=== PATIENT | male | born 1960 | race Caucasian/White ===

== ENCOUNTER → 2016-11-05 | Day surgery (SDC) | payer BC ==
[2016-11-02 13:06] VITALS: BMI 33.0
[~2016-11-05] VITALS: Ht 185.4 cm; Wt 113.6 kg
[~2016-11-05] MED LIST: ALUMSUS21 PO; FEXO1TAB49 PO; FINA5TAB4 PO; HYZ/10015 PO; LIDOCAINE HCL 2% 2 ML VIAL (20MG/ML) ONE; LPT40 PO; MIDAZOLAM HCL 1 MG/ML 2ML VIAL ONE; PROPOFOL IV EMULSION 10 MG/ML 20 ML VIAL IV ONE; SUCCINYLCHOLINE CHLORIDE 20 MG/ML 10 ML VIAL IV ONE; TERB250T51 PO; ZNT150 PO
[2016-11-05 13:05] VITALS: Ht 185.4 cm; Wt 113.6 kg
[2016-11-05 13:13] VITALS: TEMP 36.8
--- NOTE | 2016-11-05 13:41 | Endo History and Physical ---
History & Physical Date of Service: Nov 05, 2016. Chief Complaint: ABDOMINAL PAIN DIARRHEA REFLUX Referring Physician: DR LENY ACEVES History of Present Illness For EGD with Wyatt Past Medical History Male Genitourinary Prob., Reflux, Hypertension, Other Past Surgical History Hx Cardiac Surgery: No Hx Internal Defibrillator: No Hx Pacemaker: No Hx Abdominal Surgery: Yes (LAP) Hx of Implantable Prosthesis: No Hx Post-Op Nausea and Vomiting: No Hx Cancer Surgery: No Hx Thoracic Surgery: No Hx Orthopedic: Yes (LUMBAR FUSION, RT/LEFT KNEE ARTHROSCOPY) Hx Urinary Tract Surgery: No Family History Colon CA Social History Smoking Status: Never Smoker Hx Substance Use: No Hx Alcohol Use: No Allergies Coded Allergies: Grass (Unverified Allergy, Unknown, TREES,GRASS MOLDS-ITCHY EYES,STUFFY NOSE, 11/05/16) NO KNOWN DRUG ALLERGIES (Unverified Allergy, Unknown, NONE, 11/05/16) Current Medications Reported Home Medications Medications Dose Route/Sig Max Daily Dose Days Date Category Hyzaar 25MG/100MG (HCTZ/Losartan Potassium) Tab 1 Tab PO QAM 11/02/16 Reported Little Allergy (Fexofenadine Hcl) 180 Mg Tab 1 Tab PO QAM 14 11/02/16 Reported Gaviscon (Aluminum Hydroxide-Mag Carb) 1 Ruma Ruma 1 Dose PO PRN 10/27/15 Reported Proscar (Finasteride) 5 Mg Tab 5 Mg PO QAM 10/27/15 Reported Vital Signs Weight (Kilograms): 113.64 Height (Feet): 6 Height (Inches): 1 Date Time Temp Pulse Resp B/P Pulse Ox O2 Delivery O2 Flow Rate FiO2 11/05/16 13:13 36.8 75 20 137/86 97 Room Air Physical Exam General Appearance: WD/WN Respiratory/Chest: Respiratory effort: no dyspnea Cardiovascular: Heart Auscultation: RRR Abdomen: Inspection & Palpation: soft Assessment and Plan N and V, abd pain for EGD with Wyatt
--- NOTE | 2016-11-05 14:20 | Discharge Instructions ---
Endoscopy Patient Instructions Date / Procedure(s) Performed Nov 05, 2016. EGD, Other (Wyatt) Allergy Information Coded Allergies: Grass (Unverified Allergy, Unknown, TREES,GRASS MOLDS-ITCHY EYES,STUFFY NOSE, 11/05/16) NO KNOWN DRUG ALLERGIES (Unverified Allergy, Unknown, NONE, 11/05/16) Discharge Date / Findings Nov 05, 2016. Normal EGD, Wyatt placement Medication Instructions Restart Stopped Medication(s): No acid reducing meds No acid reducing meds for 48 hrs Provider Instructions Activity Restrictions - No exercising or heavy lifting for 24 hours. - Do not drink alcohol the day of the procedure. - Do not drive a car or operate machinery until the day after the procedure. - Do not make any important decisions or sign important papers in 24 hours after the procedure. Following Day: - Return to full activity which may include returning to work/school. Diet Start your diet with liquids and light foods (jello, soup, juice, toast). Then eat your usual diet if not nauseated. Treatment For Common After Affects For mild abdominal pain, bloating, or excessive gas: - Rest - Eat lightly - Lie on right side Follow-Up Information Follow-up with DR LENY ACEVES as scheduled Anesthesia Information What You Should Know You have had a procedure that required some medicine to reduce anxiety and discomfort. This treatment is called moderate sedation. After receiving the treatment, you may be sleepy, but you will be able to breathe on your own. The effects of the treatment may last for several hours. Follow these instructions along with Activity/Diet recommendations noted above: * Do NOT do anything where dizziness or clumsiness would be dangerous. * Rest quietly at home today, then you can be up and about tomorrow. * Have a responsible person stay with you the rest of today. * You may have had an I.V. today. If so, you may take the dressing off later today. Recommendations Call your doctor if: * Trouble breathing * Continuous vomiting for more than 24 hours * Temperature above 101 degrees * Severe abdominal pain or bloating * Pain not relieved by pain medicine ordered * There is increased drainage or redness from any incision * A large amount of rectal bleeding greater than 2-3 tablespoons. (If you had a polyp/s removed or have hemorrhoids, a small amount of blood - from the rectum is to be expected.) * You have any unanswered questions or concerns. IN THE EVENT OF A SERIOUS EMERGENCY, GO TO THE NEAREST EMERGENCY ROOM Your discharge instructions were prepared by provider Manny Vazquez. Patient Instructions Signature Page Eddie Neri Patient (or Guardian) Signature/Date: I have read and understand the instructions given to me by my caregivers. Caregiver/RN/Doctor Signature/Date: The above-named patient and/or guardian has received patient instructions on this date. + Original Patient Signature Page (only) stays with chart. Please make copy for patient.
--- NOTE | 2016-11-05 14:25 | GI REPORT ---
Procedure Date: 11/05/2016 1:59 PM Procedure: Upper GI endoscopy Indications: Epigastric abdominal pain, Nausea with vomiting Medicines: Midazolam 2 mg IV, Propofol total dose 350 mg IV, Lidocaine 40 mg IV Complications: No immediate complications. Estimated Blood Loss: Estimated blood loss: none. Procedure: Pre-Anesthesia Assessment: - Prior to the procedure, a History and Physical was performed, and patient medications, allergies and sensitivities were reviewed. The patient's tolerance of previous anesthesia was reviewed. - The risks and benefits of the procedure and the sedation options and risks were discussed with the patient. All questions were answered and informed consent was obtained. After obtaining informed consent, the endoscope was passed under direct vision. Throughout the procedure, the patient's blood pressure, pulse, and oxygen saturations were monitored continuously. The On-site loaner was introduced through the mouth, and advanced to the second part of duodenum. The upper GI endoscopy was accomplished without difficulty. The patient tolerated the procedure well. Findings: The examined esophagus was normal. The MCCLENDON capsule with delivery system was introduced through the mouth and advanced into the esophagus, such that the MCCLENDON pH capsule was positioned 34 cm from the incisors, which was 6 cm proximal to the EG junction. The MCCLENDON pH capsule was then deployed and attached to the esophageal mucosa. The delivery system was then withdrawn. Endoscopy was utilized for probe placement and diagnostic evaluation. The entire examined stomach was normal. The examined duodenum was normal. Impression: - Normal esophagus. - Normal stomach. - Normal examined duodenum. - The MCCLENDON pH capsule was deployed. - No specimens collected. Recommendation: - Discharge patient to home (ambulatory). - Continue present medications. - Return to primary care physician PRN. Manny Vazquez M.D. Manny Vazquez MD 11/05/2016 2:23:27 PM This report has been signed electronically. Note Initiated On: 11/05/2016 1:59 PM
--- NOTE | 2016-11-05 14:37 | Anesthesiology Progress Note ---
Anesthesia Post Op Note Date & Time Nov 05, 2016 at 14:36 Vital Signs Pain Intensity: 3 Vital Signs Past 12 Hours Date Time Temp Pulse Resp B/P Pulse Ox O2 Delivery O2 Flow Rate FiO2 11/05/16 13:13 36.8 75 20 137/86 97 Room Air Notes Mental Status: alert / awake / arousable Nausea / Vomiting: adequately controlled Pain: adequately controlled Airway Patency, RR, SpO2: stable & adequate BP & HR: stable & adequate Hydration State: stable & adequate Anesthetic Complications: no major complications apparent
[2016-11-05 14:45] VITALS: PULSE 76
[2016-11-05 15:00] VITALS: BP 123/76; O2SAT 98
--- NOTE | 2016-11-13 15:33 | OPERATIVE REPORT ---
DATE OF OPERATION: 11/13/2016 PROCEDURE PERFORMED: A 48-hour ambulatory pH monitoring with Wyatt. PROCEDURE: The patient had the Wyatt clip placed on November 05, the clip stayed in place for the entire 48 hours, making the study legitimate further time. The patient's overall DeMeester score for 48 hours was 6.3 which was well below the threshold for significant acid reflux. On day #1, histamine DeMeester score was 9.4, on the second day it was 3.0. He has had 2 episodes of reflux recorded on the event monitor during the 48-hour period. There were 52 episodes of reflux, none of which correlated with his symptoms indicating that this is highly unlikely that his symptoms are due to acid reflux disease. IMPRESSION: No significant acid reflux and poor correlation with symptoms with acid reflux. I attest to the content of the Intraoperative Record and any orders documented therein. Any exceptio ns are noted below.
== END | disposition home or self-care (01) ==
LOC: C.GI 12:51
PROVIDERS: ATTEND Internal Medicine Gastroenterology
DX: R10.13 Epigastric pain (principal); R11.2 Nausea with vomiting, unspecified; K21.9 Gastro-esophageal reflux disease without esophagitis; I10 Essential (primary) hypertension; Z98.890 Other specified postprocedural states; Z80.0 Family history of malignant neoplasm of digestive organs; Z68.33 Body mass index [BMI] 33.0-33.9, adult

== ENCOUNTER → 2017-07-24 | Outpatient (CLI) | payer BC ==
[~2017-07-24] MED LIST changes: -LIDOCAINE HCL 2% 2 ML VIAL (20MG/ML) ONE; -LPT40 PO; -MIDAZOLAM HCL 1 MG/ML 2ML VIAL ONE; -PROPOFOL IV EMULSION 10 MG/ML 20 ML VIAL IV ONE; -SUCCINYLCHOLINE CHLORIDE 20 MG/ML 10 ML VIAL IV ONE; -TERB250T51 PO; -ZNT150 PO
[2017-07-24 12:40] LABS: BASO % 0.4 %; BASO ABS # 0.03 K/uL (0-0.2); COMPLETE YES; EOS % 3.5 %; HEMATOCRIT 44.5 % (42-52); IG% 0.3 %; LYMPH % 29.4 %; LYMPH ABS # 2.27 K/uL (1.2-3.4); MEAN CELL VOLUME 94.9 fL (80-100); MEAN CORPUSCULAR HEMOGLOBIN 32.2 pg (25-34); MEAN CORPUSCULAR HGB CONC 33.9 g/dl (32-36); MEAN PLATELET VOLUME 9.3 fL (7.4-10.4); MONO % 7.9 %; NEUT % 58.5 %; PLATELET COUNT 268 K/uL (130-400); RED BLOOD COUNT 4.69 M/uL (4.7-6.1); WHITE BLOOD COUNT 7.73 K/uL (4.8-10.8)
[2017-07-24 12:59] LABS: ALT/SGPT 33 U/L (12-78); AST/SGOT 19 U/L (15-37); BLOOD UREA NITROGEN 14 mg/dl (7-18); BUN/CREATININE RATIO 13.9 (10-20); CALCIUM 8.8 mg/dl (8.5-10.1); CARBON DIOXIDE 28 mmol/L (21-32); CHLORIDE 107 mmol/L (98-107); GLUCOSE 93 mg/dl (70-99); POTASSIUM 3.7 mmol/L (3.5-5.1); SODIUM 141 mmol/L (136-145)
[2017-07-24 13:05] LABS: ALKALINE PHOSPHATASE 72 U/L (45-117); CHOLESTEROL 180 mg/dl (0-200); CHOLESTEROL/HDL RATIO 3.8; HDL CHOLESTEROL 48 mg/dl; PROSTATE SPECIFIC ANTIGEN 0.217 ng/ml (0.000-4.000); TRIGLYCERIDES 98 mg/dl (0-150); VERY LOW DENSITY LIPOPROT CALC 20 mg/dl
[2017-07-24 13:11] LABS: ESTIMATED AVERAGE GLUCOSE 105 mg/dl; HA1C FLAG Normal (Normal)
[2017-07-24 13:16] LABS: URINE APPEARANCE CLEAR (CLEAR); URINE BILIRUBIN NEG (NEG); URINE COLOR YELLOW; URINE EPITHELIAL CELL AUTO 0-5 /lpf (0-5); URINE NITRITE NEG (NEG); URINE SPECIFIC GRAVITY 1.024 (1.000-1.030); UROBILINOGEN NEG (NEG)
[2017-07-24 13:18] LABS: MANUAL MICROSCOPIC REQUIRED? NO; REVIEW REQ? NO
--- NOTE | 2017-08-05 14:22 | CODING QUERY MEDICAL NECESSITY ---
CQSUPPORTING DIAGNOSIS NEEDED A supporting diagnosis is required for the test/procedure performed on this patient in order for us to be reimbursed by the patient's insurance. Please provide a supporting diagnosis for the following test/procedure listed below next to the test name along with your signature. *If there is no additional diagnosis for this patient that would support the following test/procedure please document that below next to the test/procedure. Test(s)/Procedure(s) that require a supporting diagnosis: DOS 07/24/17 COMPLETE BLOOD COUNT PROSTATE SPECIFIC TEST Provider Signature: Date: Thank you Marika Hay Health Information Management Once completed, please kindly fax back to [phone] For questions please call [phone]
== END | disposition home or self-care (01) ==
LOC: C.LABSPEC 12:10
PROVIDERS: ATTEND Internal Medicine
DX: R73.9 Hyperglycemia, unspecified (principal); E78.5 Hyperlipidemia, unspecified; I10 Essential (primary) hypertension; R30.0 Dysuria; L60.1 Onycholysis

== ENCOUNTER 2017-11-09 22:04 | Observation (INO) | payer BC, OTHER ==
[~2017-11-09] VITALS: Ht 185.4 cm; Wt 114.0 kg
[2017-11-09] MEDS ORDERED: ASPIRIN 81 MG CHEW PO STA (22:34)
[2017-11-09] MEDS ORDERED: NITROGLYCERIN 0.4 MG SL PER TAB CHARGE SL STA ×2 (22:34→23:16)
--- NOTE | 2017-11-09 22:49 | DIAGNOSTIC IMAGING REPORT ---
CHEST ONE VIEW PORTABLE CLINICAL HISTORY: Atypical chest pain COMPARISON STUDY: 04/07/2015 FINDINGS: The heart is mildly enlarged. There is no failure. There is no focal pulmonary consolidation. There are no pleural effusions. There is minor subsegmental atelectatic change at the left lung base.[ IMPRESSION: No active disease in the chest. Electronically signed by: Ludwig Young M.D. 11/09/2017 10:48 PM Dictated Date/Time: 11/09/2017 10:47 PM
[2017-11-09 22:52] LABS: BASO % 0.5 %; BASO ABS # 0.04 K/uL (0-0.2); EOS % 2.6 %; EOS ABS # 0.23 K/uL (0-0.5); HEMOGLOBIN 14.8 g/dL (14.0-18.0); IG# 0.01 K/uL (0.00-0.02); LYMPH % 20.7 %; LYMPH ABS # 1.81 K/uL (1.2-3.4); MEAN CELL VOLUME 92.1 fL (80-100); MEAN CORPUSCULAR HEMOGLOBIN 32.5 pg (25-34); MEAN CORPUSCULAR HGB CONC 35.2 g/dl (32-36); MONO % 11.3 %; MONO ABS # 0.99 K/uL (0.11-0.59); NEUT % 64.8 %; NEUT ABS # 5.66 K/uL (1.4-6.5); PLATELET COUNT 216 K/uL (130-400); RED CELL DISTRIBUTION WIDTH CV 12.9 % (11.5-14.5); RED CELL DISTRIBUTION WIDTH SD 43.3 fL (36.4-46.3); WHITE BLOOD COUNT 8.74 K/uL (4.8-10.8)
[2017-11-09] MEDS ORDERED: TERB250T51 PO (22:52)
[2017-11-09 23:03] LABS: PTT PATIENT 25.3 SECONDS (21.0-31.0)
[2017-11-09 23:10] LABS: ALBUMIN 3.8 gm/dl (3.4-5.0); CALCIUM 8.5 mg/dl (8.5-10.1); CREATININE 1.19 mg/dl (0.60-1.40); POTASSIUM 3.3 mmol/L (3.5-5.1)
[2017-11-09 23:19] LABS: CKMB 1.4 ng/ml (0.5-3.6); TOTAL PROTEIN 7.8 gm/dl (6.4-8.2)
[2017-11-09] MEDS ORDERED: OPTIRAY 320 IV PRN (23:45)
[2017-11-10] VITALS (9 sets, daily range): BP systolic 121–147; BP diastolic 76–90; PULSE 71–87; TEMP 36.5–37; O2SAT 95–97; Ht 185.4 cm; Wt 114.0 kg
--- NOTE | 2017-11-10 00:30 | EMERGENCY ROOM VISIT NOTE ---
History Report prepared by Valorie: Laurel Jasso Under the Supervision of: Dr. Joshua Camarillo M.D. First contact with patient: 22:15 Chief Complaint: CHEST PAIN Stated Complaint: CHEST PAIN FOR PAST 5 HOURS, BLOOD PRESSURE 166/96 History of Present Illness The patient is a 57 year old male who presents to the Emergency Room with complaints of constant mid chest pain starting around 5 hours ago. He describes the pain as burning. He currently rates his discomfort as a 6/10 in severity. He started having the pain while he was working outside. He thought it might be from breathing in the cold air. The pain worsened while he was having dinner. He checked his blood pressure and found that it was 166/96. He decided to come to the ED. He has had chest pain before. He has had a stress test and ultimately had a cholecystectomy. He states this pain is different from his previous pain. The pain currently does not radiate into his arm, neck, or back. The pain shot into his left shoulder blade on one instance. He does not have any pain with breathing. He has had a cold with coughing and sneezing for the past 5 weeks. His mother and brother have a history of heart problems. He denies any history of heart problems, lung problems, blood clots, or diabetes. He has a history of hypertension. He has not taken aspirin. He is not on any blood thinners. Source of History: patient Onset: 5 hours ago Position: chest (mid) Symptom Intensity: 6/10 Quality: burning Timing: constant Associated Symptoms: + cough, No neck pain, No back pain Note: Pt denies arm pain. Review of Systems See HPI for pertinent positives & negatives. A total of 10 systems reviewed and were otherwise negative. Past Medical & Surgical Medical Problems: (1) Lumbar stenosis with neurogenic claudication Family History FH: heart disease Hypertension Social History Smoking Status: Never Smoker Marital Status: Current/Historical Medications Scheduled Fexofenadine Hcl (Little Allergy), 180 MG PO QAM Finasteride (Proscar), 5 MG PO QAM Hctz/Losartan (Hyzaar 25MG/100MG), 1 TAB PO QAM Terbinafine Hcl (Lamisil), 1 TAB PO DAILY Allergies Coded Allergies: Grass (Unverified Allergy, Unknown, TREES,GRASS MOLDS-ITCHY EYES,STUFFY NOSE, 11/05/16) NO KNOWN DRUG ALLERGIES (Unverified Allergy, Unknown, NONE, 11/05/16) Physical Exam Vital Signs Date Time Temp Pulse Resp B/P (MAP) Pulse Ox O2 Delivery O2 Flow Rate FiO2 11/10/17 01:36 91 18 151/94 95 Room Air 11/09/17 23:53 92 18 134/85 94 Room Air 11/09/17 22:45 103 18 142/94 93 Room Air 11/09/17 22:45 Room Air 11/09/17 22:29 104 11/09/17 22:22 96 Room Air 11/09/17 22:20 37.3 106 18 168/103 94 Room Air Physical Exam General: Non-ill appearing middle age male in no acute distress. HEENT: Normal cephalic atraumatic. Pupils are equal round and reactive to light. Extraocular movements are intact. Oropharynx is pink with moist mucous membranes. No swelling of the mouth lips or tongue. Neck: Supple with a midline trachea. No meningeal signs or stiffness, no JVD or bruits. No Stridor. Chest: Clear to auscultation bilaterally. No wheezes or rhonchi. No increased work of breathing. Heart: regular rate and rhythm. Abdomen: Soft nontender, nondistended without rebound guarding or rigidity. Extremities: No cyanosis clubbing or edema. No calf tenderness or assymetry Spine/Back. Non tender to palpation. No CVA tenderness Skin: Good turgor without rashes. Neurologic exam: Cranial nerves two through 12 are intact. Motor and sensation are intact and symmetrical throughout. Medical Decision & Procedures ER Provider Diagnostic Interpretation: X-ray results as stated below per interpretation by me and the radiologist: CHEST ONE VIEW PORTABLE CLINICAL HISTORY: Atypical chest pain COMPARISON STUDY: 04/07/2015 FINDINGS: The heart is mildly enlarged. There is no failure. There is no focal pulmonary consolidation. There are no pleural effusions. There is minor subsegmental atelectatic change at the left lung base.[ IMPRESSION: No active disease in the chest. Electronically signed by: Ludwig Young M.D. 11/09/2017 10:48 PM Dictated Date/Time: 11/09/2017 10:47 PM Laboratory Results 11/09/17 22:40 Red Blood Count 4.56, Mean Corpuscular Volume 92.1, Mean Corpuscular Hemoglobin 32.5, Mean Corpuscular Hemoglobin Concent 35.2, Mean Platelet Volume 9.0, Neutrophils (%) (Auto) 64.8, Lymphocytes (%) (Auto) 20.7, Monocytes (%) (Auto) 11.3, Eosinophils (%) (Auto) 2.6, Basophils (%) (Auto) 0.5, Neutrophils # (Auto ) 5.66, Lymphocytes # (Auto) 1.81, Monocytes # (Auto) 0.99, Eosinophils # (Auto ) 0.23, Basophils # (Auto) 0.04 11/09/17 22:40 Test 11/09/17 22:40 11/09/17 22:45 White Blood Count 8.74 K/uL (4.8-10.8) Red Blood Count 4.56 M/uL (4.7-6.1) Hemoglobin 14.8 g/dL (14.0-18.0) Hematocrit 42.0 % (42-52) Mean Corpuscular Volume 92.1 fL (80-100) Mean Corpuscular Hemoglobin 32.5 pg (25-34) Mean Corpuscular Hemoglobin Concent 35.2 g/dl (32-36) Platelet Count 216 K/uL (130-400) Mean Platelet Volume 9.0 fL (7.4-10.4) Neutrophils (%) (Auto) 64.8 % Lymphocytes (%) (Auto) 20.7 % Monocytes (%) (Auto) 11.3 % Eosinophils (%) (Auto) 2.6 % Basophils (%) (Auto) 0.5 % Neutrophils # (Auto) 5.66 K/uL (1.4-6.5) Lymphocytes # (Auto) 1.81 K/uL (1.2-3.4) Monocytes # (Auto) 0.99 K/uL (0.11-0.59) Eosinophils # (Auto) 0.23 K/uL (0-0.5) Basophils # (Auto) 0.04 K/uL (0-0.2) RDW Standard Deviation 43.3 fL (36.4-46.3) RDW Coefficient of Variation 12.9 % (11.5-14.5) Immature Granulocyte % (Auto) 0.1 % Immature Granulocyte # (Auto) 0.01 K/uL (0.00-0.02) Prothrombin Time 10.8 SECONDS (9.0-12.0) Prothromb Time International Ratio 1.0 (0.9-1.1) Activated Partial Thromboplast Time 25.3 SECONDS (21.0-31.0) Partial Thromboplastin Ratio 1.0 D-Dimer 420 ug/L FEU (0-500) Anion Gap 8.0 mmol/L (3-11) Est Creatinine Clear Calc Drug Dose 92.7 ml/min Estimated GFR () 79.2 Estimated GFR (Non- 68.4 BUN/Creatinine Ratio 16.1 (10-20) Calcium Level 8.5 mg/dl (8.5-10.1) Total Bilirubin 0.8 mg/dl (0.2-1) Direct Bilirubin 0.1 mg/dl (0-0.2) Aspartate Amino Transf (AST/SGOT) 23 U/L (15-37) Alanine Aminotransferase (ALT/SGPT) 43 U/L (12-78) Alkaline Phosphatase 69 U/L (45-117) Total Creatine Kinase 273 U/L (39-308) Creatine Kinase MB 1.4 ng/ml (0.5-3.6) Creatine Kinase MB Ratio 0.5 (0-3.0) Total Protein 7.8 gm/dl (6.4-8.2) Albumin 3.8 gm/dl (3.4-5.0) Lipase 203 U/L (73-393) Thyroid Stimulating Hormone (TSH) 5.160 uIu/ml (0.300-4.500) Bedside Troponin I < 0.030 ng/ml (0-0.045) Laboratory studies as stated above per my review. Medications Administered Medications (Trade) Dose Ordered Sig/Calista Route Start Time Stop Time Status Last Admin Dose Admin Aspirin (Aspirin Chew) 324 mg NOW STAT PO 11/09/17 22:34 11/09/17 22:37 DC 11/09/17 22:42 324 MG Nitroglycerin (Nitrostat Tab) 0.4 mg NOW STAT SL 11/09/17 22:34 11/09/17 22:37 DC 11/09/17 22:43 0.4 MG Nitroglycerin (Nitrostat Tab) 0.4 mg NOW STAT SL 11/09/17 23:16 1/6/18 23:17 DC 11/09/17 23:32 0.4 MG Nitroglycerin (Nitroglycerin 2% Oint) 1 inch NOW ONCE EXT 11/10/17 01:15 11/10/17 01:16 DC 11/10/17 01:36 1 INCH ECG Indication: chest pain Rate (beats per minute): 107 Rhythm: sinus tachycardia Findings: no acute ischemic change, no ectopy Comparison ECG Date: 26-Aug-2013 Change: Rate increased. ED Course 2225: Past medical records reviewed. The patient was evaluated in room C12B, and a complete history and physical examination were performed. 2233: Nitroglycerin 0.4 mg SL, Aspirin 324 mg PO. 2314: I reevaluated the patient. He currently rates his discomfort as a 4/10 in severity. He will get another nitro and go for chest CT. 6: Nitroglycerin 0.4 mg SL. 0028: I reevaluated the patient. Medical Decision Differentials include, but are not limited to; acute coronary syndrome, arrhythmia, pneumothorax, aortic pathology, PE, electrolyte or metabolic abnormality. This patient comes in as described above he had chest pain in his central chest after working out in the cold shoveling today. It's been persistent for the last couple hours. He's never had anything like this before. he has a URI and cold type symptoms but this does not hurt with coughing and it is not pleuritic and he did not have this until today. He does have cardiac risk factors with a brother who is had cardiac stents as well as high blood pressure. IV access established and he was given 325 mg of aspirin. he was also given nitroglycerin 2 and the pain went away. Chest x-ray was unremarkable. EKG shows no acute ischemic changes or ectop.y I did second EKG later on in his stay when he started having a little more pain and there is no change compared to EKG #1. I did a chest CT there is no evidence of PE or aortic pathology or any other acute pathology. He has no acute electrolyte or metabolic abnormality. Nitroglycerin paste 1 inch was placed as he started having some mild pain again. Again the EKG #2 is unchanged I have consulted Dr. Robb to see him in the ER for observation/admission. Medication Reconcilliation Current Medication List: was personally reviewed by me Blood Pressure Screening Patient's blood pressure: Normal blood pressure Blood pressure disposition: Did not require urgent referral Impression Primary Impression: Chest pain Scribe Attestation The scribe's documentation has been prepared under my direction and personally reviewed by me in its entirety. I confirm that the note above accurately reflects all work, treatment, procedures, and medical decision making performed by me. Departure Information Referrals No Doctor, Assigned (PCP) Patient Instructions [facility]
[2017-11-10] MEDS ORDERED: NITROGLYCERIN OINT 2% 1GM PACKET EXT ONE (01:15)
[2017-11-10] MEDS ORDERED: POLYETHYLENE (MIRALAX) 17 GM PACK PO PRN (02:00)
[2017-11-10] MEDS ORDERED: ONDANSETRON INJ 2 MG/ML 2 ML VIAL IV PRN (02:00)
[2017-11-10] MEDS ORDERED: ALUMINUM/MAGNESIUM/SIMETH (MAALOX MAX) 30 ML UDC PO PRN (02:00)
[2017-11-10] MEDS ORDERED: MoRPHine SULFATE 2 MG/ML CARP IV PRN (02:00)
[2017-11-10] MEDS ORDERED: MAGNESIUM HYDROXIDE SUSP 30 ML UDC PO PRN (02:00)
[2017-11-10] MEDS ORDERED: NITROGLYCERIN 0.4 MG SL PER TAB CHARGE SL PRN (02:00)
[2017-11-10] MEDS ORDERED: ACETAMINOPHEN 325 MG TAB PO PRN (02:00)
--- NOTE | 2017-11-10 02:57 | History and Physical ---
History & Physical Date & Time of Service: Nov 10, 2017 at 02:33 Chief Complaint: Chest Pain For Past 5 Hours, Blood Pressure 166/96 Primary Care Physician: Houston Shaffer M.D. History of Present Illness Source: patient 57 y/o M Hx HTN, HPL. Pt had been working outdoors in the cold today when he developed cental CP. He denies SOB, N/V, diaphoresis or lightheadedness. The pain does not radiate. He denies previous such episodes. Past Medical/Surgical History 1) HTN 2) HPL 3) BPH Family History FH: heart disease Hypertension Social History Smoking Status: Never Smoker Marital Status: Multi-Drug Resistant Organisms History of MDRO: No Allergies Coded Allergies: Grass (Unverified Allergy, Unknown, TREES,GRASS MOLDS-ITCHY EYES,STUFFY NOSE, 11/05/16) NO KNOWN DRUG ALLERGIES (Unverified Allergy, Unknown, NONE, 11/05/16) Home Medications Scheduled Fexofenadine Hcl (Little Allergy), 180 MG PO QAM Finasteride (Proscar), 5 MG PO QAM Hctz/Losartan (Hyzaar 25MG/100MG), 1 TAB PO QAM Terbinafine Hcl (Lamisil), 1 TAB PO DAILY Review of Systems Constitutional: No fever, No chills, No sweats Eyes: No worsening of vision ENT: No hearing loss, No nasal symptoms Respiratory: No cough, No sputum, No wheezing Cardiovascular: + chest pain Abdomen: No pain, No nausea, No vomiting Musculoskeletal: No joint pain Genitourinary - Male: No hematuria, No dysuria Neurologic: No memory loss, No paralysis, No weakness Psychiatric: No depression symptoms Endocrine: No fatigue Hematologic / Lymphatic: No abnormal bleeding/bruising Integumentary: No rash Allergic / Immunologic: No environmental allergies Physical Exam Vital Signs Date Time Temp Pulse Resp B/P (MAP) Pulse Ox O2 Delivery O2 Flow Rate FiO2 11/10/17 02:20 83 18 149/90 94 Room Air 11/10/17 01:36 91 18 151/94 95 Room Air 11/09/17 23:53 92 18 134/85 94 Room Air 11/09/17 22:45 103 18 142/94 93 Room Air 11/09/17 22:45 Room Air 11/09/17 22:29 104 11/09/17 22:22 96 Room Air 11/09/17 22:20 37.3 106 18 168/103 94 Room Air General Appearance: WD/WN, no apparent distress Head: normocephalic Eyes: normal inspection ENT: pharynx normal Neck: supple, no JVD Respiratory/Chest: chest non-tender, lungs clear Cardiovascular: regular rate, rhythm, no edema, no gallop Abdomen/GI: normal bowel sounds, non tender, soft Back: normal inspection, no CVA tenderness, no muscle spasm Extremities/Musculoskelatal: normal inspection, no calf tenderness 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, no motor/sensory deficits, alert, oriented x 3 Skin: normal color, warm/dry, no rash Diagnostics Laboratory Results Results Past 24 Hours Test 11/09/17 22:40 11/09/17 22:45 Range/Units White Blood Count 8.74 4.8-10.8 K/uL Red Blood Count 4.56 4.7-6.1 M/uL Hemoglobin 14.8 14.0-18.0 g/dL Hematocrit 42.0 42-52 % Mean Corpuscular Volume 92.1 80-100 fL Mean Corpuscular Hemoglobin 32.5 25-34 pg Mean Corpuscular Hemoglobin Concent 35.2 32-36 g/dl Platelet Count 216 130-400 K/uL Mean Platelet Volume 9.0 7.4-10.4 fL Neutrophils (%) (Auto) 64.8 % Lymphocytes (%) (Auto) 20.7 % Monocytes (%) (Auto) 11.3 % Eosinophils (%) (Auto) 2.6 % Basophils (%) (Auto) 0.5 % Neutrophils # (Auto) 5.66 1.4-6.5 K/uL Lymphocytes # (Auto) 1.81 1.2-3.4 K/uL Monocytes # (Auto) 0.99 0.11-0.59 K/uL Eosinophils # (Auto) 0.23 0-0.5 K/uL Basophils # (Auto) 0.04 0-0.2 K/uL RDW Standard Deviation 43.3 36.4-46.3 fL RDW Coefficient of Variation 12.9 11.5-14.5 % Immature Granulocyte % (Auto) 0.1 % Immature Granulocyte # (Auto) 0.01 0.00-0.02 K/uL Prothrombin Time 10.8 9.0-12.0 SECONDS Prothromb Time International Ratio 1.0 0.9-1.1 Activated Partial Thromboplast Time 25.3 21.0-31.0 SECONDS Partial Thromboplastin Ratio 1.0 D-Dimer 420 0-500 ug/L FEU Sodium Level 138 136-145 mmol/L Potassium Level 3.3 3.5-5.1 mmol/L Chloride Level 106 98-107 mmol/L Carbon Dioxide Level 24 21-32 mmol/L Anion Gap 8.0 3-11 mmol/L Blood Urea Nitrogen 19 7-18 mg/dl Creatinine 1.19 0.60-1.40 mg/dl Est Creatinine Clear Calc Drug Dose 92.7 ml/min Estimated GFR () 79.2 Estimated GFR (Non- 68.4 BUN/Creatinine Ratio 16.1 10-20 Random Glucose 105 70-99 mg/dl Calcium Level 8.5 8.5-10.1 mg/dl Total Bilirubin 0.8 0.2-1 mg/dl Direct Bilirubin 0.1 0-0.2 mg/dl Aspartate Amino Transf (AST/SGOT) 23 15-37 U/L Alanine Aminotransferase (ALT/SGPT) 43 12-78 U/L Alkaline Phosphatase 69 45-117 U/L Total Creatine Kinase 273 39-308 U/L Creatine Kinase MB 1.4 0.5-3.6 ng/ml Creatine Kinase MB Ratio 0.5 0-3.0 Total Protein 7.8 6.4-8.2 gm/dl Albumin 3.8 3.4-5.0 gm/dl Lipase 203 73-393 U/L Thyroid Stimulating Hormone (TSH) 5.160 0.300-4.500 uIu/ml Bedside Troponin I < 0.030 0-0.045 ng/ml Normal EKG Impression Assessment and Plan 57 y/o M Hx HTN, HPL. Pt had been working outdoors in the cold today when he developed central CP. He denies SOB, N/V, diaphoresis or lightheadedness. The pain does not radiate. He denies previous such episodes. 1) CP - risk factors include weight, age, male, family history, HTN, HPL, truncal obesity - pt assigned to telemetry - serial enzymes requested - placed on ASA, Statin, Bblocker 2) HTN - HCTZ held in favor of Bblocker - will continue ARB 3) HPL - pt denied, however, review of previous labs indicate a marginally unfavorable profile - started on a Statin which should likely be continued if tolerated considering his tao factors 4) TSH is elevated - check T4,3 - can follow up as outpt if treatment needed 5) BPH - cont Finasteride Full code - Lovenox prophylaxis - total time for this admit including review of labs, meds, records, EKG - discussion with pt and ER attending VTE Prophylaxis VTE Risk Assessment Done? Y/N: Yes Risk Level: Low
[2017-11-10] MEDS ORDERED: D5NSS + 20MEQ KCL 1,000 ML IV SCH (03:00)
[2017-11-10] MEDS: ENOXAPARIN 40 MG/0.4 ML SYR SC SCH (05:36)
[2017-11-10] MEDS ORDERED: IV FLUIDS COMPLETED PRN (05:45)
--- NOTE | 2017-11-10 07:06 | Family Medicine Progress Note ---
Progress Note Date of Service Nov 10, 2017. Subjective Pt evaluation today including: conversation w/ patient, conversation w/ family , physical exam, chart review, lab review, review of studies, review of inpatient medication list Patient having a small amount of chest discomfort this morning. No shortness of breath, nausea, diaphoresis, palpitations, dizziness, PND or orthopnea. He reports spending most of the day outside yesterday, moving and lifting heavy objects. He had some minimal chest discomfort during this which he put down to the cold air. He then had a sub a the end of the day and went home. While walking around his house he noted progressively worsening substernal chest pain over the next hour. Non-exertional. He measured his BP and HR which were raised so decided to come in. The pain was worst in the ER severity 05/13 which lasted for around 2 hours. No associated shortness of breath, diaphoresis or dizziness. FHx: brother had an [place] and stend placed aged 63 yo All Other Systems: Reviewed and Negative Medications Current Inpatient Medications Medications (Trade) Dose Ordered Sig/Calista Route Start Time Stop Time Status Last Admin Dose Admin Ioversol (Optiray 320) 100 ml UD PRN IV 11/09/17 23:45 11/13/17 23:44 Enoxaparin Sodium (Lovenox Inj) 40 mg Q24H SC 11/10/17 06:00 12/10/17 05:59 11/10/17 05:36 40 MG Acetaminophen (Tylenol Tab) 650 mg Q4H PRN PO 11/10/17 02:00 12/10/17 01:59 Al Hydrox/Mg Hydrox/Simethicone (Maalox Max Susp) 15 ml Q4H PRN PO 11/10/17 02:00 12/10/17 01:59 Magnesium Hydroxide (Milk Of Magnesia Susp) 30 ml Q12H PRN PO 11/10/17 02:00 12/10/17 01:59 Ondansetron HCl (Zofran Inj) 4 mg Q6H PRN IV 11/10/17 02:00 12/10/17 01:59 Nitroglycerin (Nitrostat Tab) 0.4 mg UD PRN SL 11/10/17 02:00 12/10/17 01:59 Nitroglycerin (Nitroglycerin 2% Oint) 1 inch Q6H EXT 11/10/17 08:00 12/10/17 07:59 Morphine Sulfate (MoRPHine SULFATE INJ) 2 mg Q30M PRN IV 11/10/17 02:00 11/24/17 01:59 Polyethylene (Miralax Powder Packet) 17 gm DAILY PRN PO 11/10/17 02:00 12/10/17 01:59 Finasteride (Proscar Tab) 5 mg QAM PO 11/10/17 09:00 12/10/17 08:59 HCTZ/Losartan Potassium (Hyzaar 50-12.5 Tab) 1 tab QAM PO 11/10/17 09:00 12/10/17 08:59 Atorvastatin Calcium (Lipitor Tab) 40 mg QAM PO 11/10/17 09:00 12/10/17 08:59 Potassium Chloride/Dextrose/ Sod Cl 1,000 ml @ 100 mls/hr Q10H IV 11/10/17 03:00 11/10/17 22:59 11/10/17 05:33 100 MLS/HR Miscellaneous (Iv Fluids Completed) 1 ea PRN PRN N/A 11/10/17 05:45 11/10/18 05:44 Objective Vital Signs Date Time Temp Pulse Resp B/P (MAP) Pulse Ox O2 Delivery O2 Flow Rate FiO2 11/10/17 03:02 36.5 83 16 147/90 96 Room Air 11/10/17 02:20 83 18 149/90 94 Room Air 11/10/17 01:36 91 18 151/94 95 Room Air 11/09/17 23:53 92 18 134/85 94 Room Air 11/09/17 22:45 103 18 142/94 93 Room Air 11/09/17 22:45 Room Air 11/09/17 22:29 104 11/09/17 22:22 96 Room Air 11/09/17 22:20 37.3 106 18 168/103 94 Room Air Physical Exam General Appearance: WD/WN, no apparent distress Eyes: normal inspection ENT: pharynx normal Neck: supple, no JVD Respiratory/Chest: lungs clear, normal breath sounds, no respiratory distress, no accessory muscle use Cardiovascular: regular rate, rhythm, no edema, no murmur Abdomen: normal bowel sounds, non tender, soft Extremities: no pedal edema, no calf tenderness, normal capillary refill 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 (no facial droop), no motor/ sensory deficits (grossly normal), alert, oriented x 3 Skin: normal color, warm/dry, no rash Laboratory Results 11/09/17 22:40 Red Blood Count 4.56, Mean Corpuscular Volume 92.1, Mean Corpuscular Hemoglobin 32.5, Mean Corpuscular Hemoglobin Concent 35.2, Mean Platelet Volume 9.0, Neutrophils (%) (Auto) 64.8, Lymphocytes (%) (Auto) 20.7, Monocytes (%) (Auto) 11.3, Eosinophils (%) (Auto) 2.6, Basophils (%) (Auto) 0.5, Neutrophils # (Auto ) 5.66, Lymphocytes # (Auto) 1.81, Monocytes # (Auto) 0.99, Eosinophils # (Auto ) 0.23, Basophils # (Auto) 0.04 11/09/17 22:40 Test 11/09/17 22:40 11/09/17 22:45 11/10/17 06:06 11/10/17 10:33 White Blood Count 8.74 K/uL (4.8-10.8) Red Blood Count 4.56 M/uL (4.7-6.1) Hemoglobin 14.8 g/dL (14.0-18.0) Hematocrit 42.0 % (42-52) Mean Corpuscular Volume 92.1 fL (80-100) Mean Corpuscular Hemoglobin 32.5 pg (25-34) Mean Corpuscular Hemoglobin Concent 35.2 g/dl (32-36) Platelet Count 216 K/uL (130-400) Mean Platelet Volume 9.0 fL (7.4-10.4) Neutrophils (%) (Auto) 64.8 % Lymphocytes (%) (Auto) 20.7 % Monocytes (%) (Auto) 11.3 % Eosinophils (%) (Auto) 2.6 % Basophils (%) (Auto) 0.5 % Neutrophils # (Auto) 5.66 K/uL (1.4-6.5) Lymphocytes # (Auto) 1.81 K/uL (1.2-3.4) Monocytes # (Auto) 0.99 K/uL (0.11-0.59) Eosinophils # (Auto) 0.23 K/uL (0-0.5) Basophils # (Auto) 0.04 K/uL (0-0.2) RDW Standard Deviation 43.3 fL (36.4-46.3) RDW Coefficient of Variation 12.9 % (11.5-14.5) Immature Granulocyte % (Auto) 0.1 % Immature Granulocyte # (Auto) 0.01 K/uL (0.00-0.02) Prothrombin Time 10.8 SECONDS (9.0-12.0) Prothromb Time International Ratio 1.0 (0.9-1.1) Activated Partial Thromboplast Time 25.3 SECONDS (21.0-31.0) Partial Thromboplastin Ratio 1.0 D-Dimer 420 ug/L FEU (0-500) Anion Gap 8.0 mmol/L (3-11) Est Creatinine Clear Calc Drug Dose 92.7 ml/min Estimated GFR () 79.2 Estimated GFR (Non- 68.4 BUN/Creatinine Ratio 16.1 (10-20) Calcium Level 8.5 mg/dl (8.5-10.1) Total Bilirubin 0.8 mg/dl (0.2-1) Direct Bilirubin 0.1 mg/dl (0-0.2) Aspartate Amino Transf (AST/SGOT) 23 U/L (15-37) Alanine Aminotransferase (ALT/SGPT) 43 U/L (12-78) Alkaline Phosphatase 69 U/L (45-117) Total Creatine Kinase 273 U/L (39-308) Creatine Kinase MB 1.4 ng/ml (0.5-3.6) Creatine Kinase MB Ratio 0.5 (0-3.0) Total Protein 7.8 gm/dl (6.4-8.2) Albumin 3.8 gm/dl (3.4-5.0) Lipase 203 U/L (73-393) Thyroid Stimulating Hormone (TSH) 5.160 uIu/ml (0.300-4.500) Bedside Troponin I < 0.030 ng/ml (0-0.045) Free Thyroxine 1.16 ng/dl (0.80-1.60) Free Triiodothyronine 2.81 pg/ml (2.30-4.20) Troponin I < 0.015 ng/ml (0-0.045) Assessment and Plan 57 y/o M with HTN, HPL admission for chest pain rule our FL. 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 Moderate to high intensity statin recommended - atorvastatin 40 mg PO daily Elevated TSH - normal free T4/T3, repeat in 6-8 weeks as outpatient BPH - cont Finasteride VTE Prophylaxis - Lovenox 40mg SQ daily Code Full Disposition - remain on telemetry pending stress echo tomorrow History Resident Physician Supervision Note: I was present with Dr. Abrams during the history and exam. I discussed the case with the resident and agree with the findings and plan as documented in the note. Any exceptions or clarifications are listed here. Pt reports mild chest discomfort this AM which was wholly resolved following GI cocktail with lunch. Reports no lightheadedness, palpitations, nausea/vomiting, diaphoresis, paresthesias. Has been up, walking with spouse in the halls without sx. General Appearance: WD/WN, no apparent distress Respiratory: chest non-tender, lungs clear, normal breath sounds, no respiratory distress Cardiovascular: normal peripheral pulses, regular rate, rhythm, no edema, no murmur Gastrointestinal: normal bowel sounds, non tender, soft, no organomegaly Assessment/Plan 57 y/o male h/o HTN, HLD, BPH presents with 2 hour episode of chest pain Chest pain - likely GI related 2/2 improvement w/ cocktail and hx consistent w/ same - trop neg x 3, no significant EKG changes - high family and medical risk - stress echo Saturday HLD - continue statin therapy HTN - continue hyzaar Elevated TSH - f/u T3/4 BPH - continue finasteride Resident Tracking Resident Involvement: Resident Care Provided Care Provided: Adult Hospital Medicine
--- NOTE | 2017-11-10 07:18 | DIAGNOSTIC IMAGING REPORT ---
CHEST COMBO ANGIO DISSECTION CLINICAL HISTORY: Chest pain. Hypertension. Evaluate for dissection. COMPARISON STUDY: Chest radiograph November 09, 2017. TECHNIQUE: Unenhanced and arterial phase imaging of the chest was performed. Injection of 93 cc Optiray 320 IV was uneventful. Sagittal and coronal reconstructions were viewed as well as maximal intensity projections on an independent 3-D workstation. FINDINGS: The caliber of the thoracic aorta is normal. There is no evidence for intramural hematoma or thoracic aortic dissection. The size of the heart is normal. There is no pericardial effusion. There are are prominent mediastinal and bilateral hilar lymph nodes which measure up to 1 cm in short axis diameter. No pneumothorax or pleural effusion is present. No pulmonary emboli are identified. Linear and groundglass opacities suggest atelectasis. There is no consolidation to suggest pneumonia. No significant abnormality of the bony thorax is noted. Upper abdomen is unremarkable. IMPRESSION: 1. No thoracic aortic dissection. 2. No pulmonary emboli identified. 3. No acute intrathoracic findings. 4. Prominent mediastinal and bilateral hilar lymph nodes, a nonspecific finding. Electronically signed by: Joseph Wiggins M.D. 11/10/2017 7:16 AM Dictated Date/Time: 11/10/2017 7:08 AM
[2017-11-10] MEDS: NITROGLYCERIN 2% OINTMENT 30GM TUBE EXT SCH ×3 (08:00→20:48)
[2017-11-10] MEDS ORDERED: GI COCKTAIL PO ONE (08:15)
[2017-11-10] MEDS: ATORVASTATIN 40 MG TAB PO SCH (08:25)
[2017-11-10] MEDS: FINASTERIDE 5 MG TAB PO SCH (08:25)
[2017-11-10] MEDS ORDERED: ASPIRIN 81 MG ECTAB PO ONE (08:30)
[2017-11-10] MEDS ORDERED: ALUMINUM/MAGNESIUM SUSP 18 ML, LIDOCAINE HCL 2% VISCOUS SOLN 6 ML, BARCODE IDENTIFIER 1 EA PO ONE ×2 (08:45)
[2017-11-10] MEDS ORDERED: LOSARTAN/HCTZ 50-12.5 EA TAB PO SCH (09:00)
[2017-11-10] MEDS: RANITIDINE HCL 150 MG TAB PO SCH ×2 (09:04→19:25)
[2017-11-11] VITALS: O2SAT 95
[2017-11-11] MEDS: NITROGLYCERIN 2% OINTMENT 30GM TUBE EXT SCH (02:00)
[2017-11-11 03:22] VITALS: BP 145/83; PULSE 78; TEMP 36.8; O2SAT 97
[2017-11-11 04:15] VITALS: O2SAT 97
[2017-11-11] MEDS: ENOXAPARIN 40 MG/0.4 ML SYR SC SCH (06:02)
--- NOTE | 2017-11-11 07:37 | Family Medicine Progress Note ---
Progress Note Date of Service Nov 11, 2017. Subjective Pt evaluation today including: conversation w/ patient, physical exam No chest pain, shortness of breath, diaphoresis, palpitations, orthopnea. He does note he woke up in a night sweat last night which happens from time to time at home. No symptoms of obstructive sleep apnea. Ongoing nasal congestion and postnasal drip. All Other Systems: Reviewed and Negative Medications Current Inpatient Medications Medications (Trade) Dose Ordered Sig/Calista Route Start Time Stop Time Status Last Admin Dose Admin Ioversol (Optiray 320) 100 ml UD PRN IV 11/09/17 23:45 11/13/17 23:44 Enoxaparin Sodium (Lovenox Inj) 40 mg Q24H SC 11/10/17 06:00 12/10/17 05:59 11/11/17 06:02 40 MG Acetaminophen (Tylenol Tab) 650 mg Q4H PRN PO 11/10/17 02:00 12/10/17 01:59 11/10/17 08:33 650 MG Al Hydrox/Mg Hydrox/Simethicone (Maalox Max Susp) 15 ml Q4H PRN PO 11/10/17 02:00 12/10/17 01:59 Magnesium Hydroxide (Milk Of Magnesia Susp) 30 ml Q12H PRN PO 11/10/17 02:00 12/10/17 01:59 Ondansetron HCl (Zofran Inj) 4 mg Q6H PRN IV 11/10/17 02:00 12/10/17 01:59 Nitroglycerin (Nitrostat Tab) 0.4 mg UD PRN SL 11/10/17 02:00 12/10/17 01:59 Nitroglycerin (Nitroglycerin 2% Oint) 1 inch Q6H EXT 11/10/17 08:00 12/10/17 07:59 Morphine Sulfate (MoRPHine SULFATE INJ) 2 mg Q30M PRN IV 11/10/17 02:00 11/24/17 01:59 Polyethylene (Miralax Powder Packet) 17 gm DAILY PRN PO 11/10/17 02:00 12/10/17 01:59 Finasteride (Proscar Tab) 5 mg QAM PO 11/10/17 09:00 12/10/17 08:59 11/10/17 08:25 5 MG Atorvastatin Calcium (Lipitor Tab) 40 mg QAM PO 11/10/17 09:00 12/10/17 08:59 11/10/17 08:25 40 MG Miscellaneous (Iv Fluids Completed) 1 ea PRN PRN N/A 11/10/17 05:45 11/10/18 05:44 Aspirin (Ecotrin Tab) 81 mg QAM PO 11/11/17 09:00 12/11/17 08:59 Ranitidine HCl (zANTac TAB) 150 mg BID PO 11/10/17 09:00 12/10/17 08:59 11/10/17 19:25 150 MG Metoprolol Succinate (Toprol Xl Tab) 25 mg QAM PO 11/11/17 09:00 12/11/17 08:59 Losartan Potassium (coZAAR TAB) 50 mg QAM PO 11/11/17 09:00 12/11/17 08:59 Objective Vital Signs Date Time Temp Pulse Resp B/P (MAP) Pulse Ox O2 Delivery O2 Flow Rate FiO2 11/11/17 04:15 97 Room Air 11/11/17 03:22 36.8 78 16 145/83 (103) 97 11/11/17 00:00 95 Room Air 11/10/17 23:53 37.0 81 18 134/87 (103) 95 Room Air 11/10/17 20:00 96 Room Air 11/10/17 19:56 37.0 74 20 122/79 (93) 96 Room Air 11/10/17 16:00 97 Room Air 11/10/17 15:25 36.7 71 18 121/80 (94) 97 Room Air 11/10/17 12:29 36.6 87 16 128/82 (97) 95 Room Air 11/10/17 12:00 96 Room Air 11/10/17 08:00 36.5 77 16 137/76 (96) 96 Room Air 11/10/17 08:00 96 Room Air Physical Exam General Appearance: WD/WN, no apparent distress Neck: supple, no JVD Respiratory/Chest: chest non-tender, lungs clear, normal breath sounds, no respiratory distress, no accessory muscle use Cardiovascular: regular rate, rhythm, no edema, no murmur Abdomen: normal bowel sounds, non tender, soft Extremities: no pedal edema, no calf tenderness, normal capillary refill 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 Moderate to high intensity statin recommended - atorvastatin 40 mg PO daily Elevated TSH - normal free T4/T3, repeat in 6-8 weeks as outpatient BPH - cont Finasteride VTE Prophylaxis - Lovenox 40mg SQ daily Code Full Disposition - possibly home later today if stress echo negative Resident Tracking Resident Involvement: Resident Care Provided Care Provided: Adult Hospital Medicine
[2017-11-11 07:50] VITALS: BP 111/68; PULSE 76; TEMP 36.7; O2SAT 95
[2017-11-11] MEDS ORDERED: SODIUM CHLORIDE 0.9% 1000ML 1,000 ML IV SCH (08:00)
[2017-11-11] MEDS ORDERED: ASPIRIN 81 MG ECTAB PO SCH (09:00)
[2017-11-11] MEDS ORDERED: LOSARTAN POTASSIUM 50 MG TAB PO SCH (09:00)
[2017-11-11] MEDS ORDERED: METOPROLOL SUCC 25MG EXT REL TAB PO SCH (09:00)
[2017-11-11] MEDS ORDERED: ZNT150 PO (10:36)
[2017-11-11] MEDS ORDERED: LPT40 PO (10:36)
--- NOTE | 2017-11-11 10:43 | Discharge Instructions ---
Discharge Instructions Date of Service Nov 11, 2017. Admission Reason for Admission: Chest Pain Discharge Discharge Diagnosis / Problem: Non cardiac chest pain Discharge Goals Goal(s): Decrease discomfort Activity Recommendations Activity Limitations: resume your previous activity . Instructions / Follow-Up Instructions / Follow-Up You were diagnosed with non cardiac chest pain. Cardiac enzymes, EKG and stress echocardiogram were are normal. Your cholesterol was checked and given your additional risk factors you are likely to benefit from a statin to help lower your cholesterol. You have been started on atorvastatin for this and should follow up with your family physician. The pain was most likely GI in origin and you have been started on ranitidine for this - please follow up with your primary care physician regarding this in the next 1-2 weeks. Current Hospital Diet Patient's current hospital diet: AHA Diet (Heart Healthy) Discharge Diet Recommended Diet: AHA Diet (Heart Healthy) Pending Studies Studies pending at discharge: no Medical Emergencies . Who to Call and When: Medical Emergencies: If at any time you feel your situation is an emergency, please call 911 immediately. . Non-Emergent Contact Non-Emergency issues call your: Primary Care Provider . . "Provider Documentation" section prepared by Ari Abrams. . VTE Core Measure Inpt VTE Proph given/why not?: Enoxaparin (Lovenox)SQ
[2017-11-11] MEDS: ATORVASTATIN 40 MG TAB PO SCH (11:19)
[2017-11-11] MEDS: FINASTERIDE 5 MG TAB PO SCH (11:19)
[2017-11-11] MEDS: RANITIDINE HCL 150 MG TAB PO SCH (11:19)
[2017-11-11 11:24] VITALS: BP 111/68; PULSE 76; TEMP 36.7; O2SAT 95
--- NOTE | 2017-11-11 14:56 | EXERCISE STRESS ECHO ---
*NOTICE TO RECEIVING DEMOCRAT AGENCY This information is strictly Confidential and protected under [place] law. [place] law prohibits you from making any further disclosure of this information unless further disclosure is expressly permitted by the written consent of the person to whom it pertains or is authorized by law. A general authorization for the release of medical or other information is not sufficient for this purpose. Hospital accepts no responsibility if the information is made available to any other person, INCLUDING THE PATIENT. Interpretation Summary * Name: JAXON CAMEJO Study Date: 11/11/2017 08:32 AM BP: 128/94 mmHg * Patient Location: C.2T\S\S238\S\2 HR: 73 * : 1960 (M/d/yyyy) Gender: Male Height: 73 in * Age: 57 yrs Ethnicity: CA Weight: 253 lb * Ordering Physician: Ari Abrams * Referring Physician: Self, Referred * Performed By: Anel Santos RCS * * Reason For Study: CHEST PAIN * BSA: 2.4 m2 * -- Conclusions -- * 1. Normal stress echocardiogram at 9.7 Mets and a peak heart rate of 92% predicted maximum. * 2. No exercise-induced chest pain. * 3. False positive EKG response. * 4. Baseline echocardiogram notes normal left ventricular systolic function without wall motion abnormality. Procedure Details * ECHOEX, CPT #[id number] * ECHO COLOR FLOW, CPT #[id number] * ECHO DOPPLER, CPT #[id number] Left Ventricle * The left ventricle is normal in size. * There is borderline concentric left ventricular hypertrophy. * Left ventricular systolic function is normal. * Resting wall motion: Normal. Stress wall motion: Appropriate increase in Left ventricular systolic function and decrease in cavity size. No stress induced segmental wall motion abnormalities. Right Ventricle * The right ventricle is grossly normal size. * The right ventricular systolic function is normal as assessed by tricuspid annular plane systolic excursion (TAPSE) (normal >1.5 cm). Atria * The left atrium is mildly dilated. * Borderline right atrial enlargement. * No ASD detected; PFO is not assessed. Mitral Valve * The mitral valve is grossly normal. * There is no mitral valve stenosis. * Significant mitral regurgitation is absent. Tricuspid Valve * The tricuspid valve is not well visualized, but is grossly normal. * There is no tricuspid stenosis. * Significant tricuspid regurgitation is absent. Aortic Valve * The aortic valve is trileaflet. * The aortic valve opens well. * No hemodynamically significant valvular aortic stenosis. * No aortic regurgitation is present. Pulmonic Valve * The pulmonary valve is not well seen, but the Doppler examination is normal without significant regurgitation or stenosis. Great Vessels * The aortic root is normal size. * The pulmonary is not well visualized. Pericardium * There is no pericardial effusion. Stress Parameters * Normal baseline electrocardiogram. * There was a maximum 1.5mm ST segment depression in the inferior lead(s). * The stress portion of this study was personally supervised by the undersigned interpreting physician. * Rest heart rate was '81' BPM. * Rest blood pressure was '128/94' * Maximum heart rate achieved was 153 bpm. * Maximum heart rate was 92 % of maximum age-predicted heart rate. * Maximum blood pressure was '192/74' * Total exercise time was '07:45' * Maximum exercise MET level achieved was '9.70' METS * Maximum treadmill speed was '3.40' miles per hour. * Maximum treadmill elevation was '14.00'% grade. Left Ventricular Diastolic Function * Diastolic dysfunction, Grade II (pseudonormalization pattern). MMode 2D Measurements and Calculations IVSd 1.3 cm IVSs 1.5 cm LVIDd 4.2 cm LVIDs 3.0 cm LVPWd 1.2 cm LVPWs 1.3 cm IVS/LVPW 1.1 FS 29.4 % EDV(Teich) 79.6 ml ESV(Teich) 34.5 ml EF(Teich) 56.6 % EDV(cubed) 75.3 ml ESV(cubed) 26.5 ml EF(cubed) 64.8 % % IVS thick 20.1 % % LVPW thick 8.1 % LV mass(C)d 182.2 grams LV mass(C)dI 76.6 grams/m\S\2 LV mass(C)s 137.0 grams LV mass(C)sI 57.6 grams/m\S\2 SV(Teich) 45.1 ml SI(Teich) 19.0 ml/m\S\2 SV(cubed) 48.8 ml SI(cubed) 20.5 ml/m\S\2 Ao root diam 3.3 cm Ao root area 8.8 cm\S\2 LA dimension 4.0 cm LA/Ao 1.2 LVOT diam 2.0 cm LVOT area 3.0 cm\S\2 Doppler Measurements and Calculations MV E max roman 82.0 cm/sec MV A max roman 68.5 cm/sec MV E/A 1.2 MV P1/2t max roman 88.3 cm/sec MV P1/2t 43.0 msec MVA(P1/2t) 5.1 cm\S\2 MV dec slope 601.9 cm/sec\S\2 MV dec time 0.18 sec Ao V2 max 100.0 cm/sec Ao max PG 4.0 mmHg Ao max PG (full) 1.3 mmHg CRISTINA(V,A) 2.5 cm\S\2 CRISTINA(V,D) 2.5 cm\S\2 LV V1 max PG 2.7 mmHg LV V1 max 82.3 cm/sec PA V2 max 100.9 cm/sec PA max PG 4.1 mmHg PI max roman 173.7 cm/sec PI max PG 12.1 mmHg PI dec slope 218.5 cm/sec\S\2 PI P1/2t 232.9 msec TR max roman 216.6 cm/sec
== END 2017-11-11 11:50 | disposition home or self-care (01) ==
LOC: C.EDB 22:05 → C.2T 11-10 01:58 → ENRESERV 11-10 02:03
PROVIDERS: ADMIT Internal Medicine; ATTEND Family Medicine
DX: R07.9 Chest pain, unspecified (principal); I10 Essential (primary) hypertension; Z82.49 Family history of ischemic heart disease and other diseases of the circulatory system; E78.5 Hyperlipidemia, unspecified

== ENCOUNTER 2018-06-13 21:08 | Emergency (ER) | payer OTHER ==
[~2018-06-13] VITALS: Ht 185.4 cm; Wt 114.3 kg
[~2018-06-13 21:08] MED LIST changes: -ALUMSUS21 PO; +LPT40 PO; +TERB250T22 PO; +ZNT150 PO
[2018-06-13 21:11] VITALS: TEMP 37; Ht 185.4 cm; Wt 114.3 kg
[2018-06-13] MEDS ORDERED: KETOROLAC TROMETHAMINE 30 MG/ML VIAL IV STA (21:22)
[2018-06-13] MEDS ORDERED: ONDANSETRON INJ 2 MG/ML 2 ML VIAL IV STA (21:22)
[2018-06-13] MEDS ORDERED: SODIUM CHLORIDE 0.9% 500ML 500 ML IV STA (21:22)
[2018-06-13] MEDS ORDERED: LOSA100T33 PO (21:50)
[2018-06-13] MEDS ORDERED: PRS5 PO (21:50)
[2018-06-13] MEDS ORDERED: MYR25 PO (21:51)
[2018-06-13] MEDS ORDERED: CHOL4POW11 PO (21:52)
[2018-06-13 22:15] LABS: BASO % 0.5 %; BASO ABS # 0.04 K/uL (0-0.2); EOS % 1.6 %; EOS ABS # 0.12 K/uL (0-0.5); HEMATOCRIT 39.6 % (42-52); IG# 0.01 K/uL (0.00-0.02); LYMPH % 35.9 %; LYMPH ABS # 2.73 K/uL (1.2-3.4); MEAN CELL VOLUME 94.1 fL (80-100); MEAN CORPUSCULAR HEMOGLOBIN 33.3 pg (25-34); MEAN CORPUSCULAR HGB CONC 35.4 g/dl (32-36); MEAN PLATELET VOLUME 8.9 fL (7.4-10.4); MONO % 7.2 %; MONO ABS # 0.55 K/uL (0.11-0.59); NEUT % 54.7 %; NEUT ABS # 4.16 K/uL (1.4-6.5); PLATELET COUNT 213 K/uL (130-400); RED CELL DISTRIBUTION WIDTH SD 44.4 fL (36.4-46.3); WHITE BLOOD COUNT 7.61 K/uL (4.8-10.8)
--- NOTE | 2018-06-13 22:39 | DIAGNOSTIC IMAGING REPORT ---
CT OF THE ABDOMEN AND PELVIS WITHOUT CONTRAST, STONE PROTOCOL CLINICAL HISTORY: Left flank pain. COMPARISON STUDY: CT of the abdomen and pelvis May 10, 2016. TECHNIQUE: Helical axial images of the abdomen and pelvis were obtained without IV or oral contrast according to renal stone protocol. A dose lowering technique was utilized adhering to the principles of ALARA. FINDINGS: Lung bases are clear. No renal, ureteral or bladder calculi are present. There is no hydronephrosis or hydroureter. Evaluation of the remainder of the abdomen and pelvis is suboptimal on this unenhanced exam. There is no biliary ductal dilatation status post cholecystectomy. Unenhanced images of the adrenal glands, spleen and pancreas are normal. There is no peripancreatic infiltration or pancreatic ductal dilatation. No abdominal or pelvic lymphadenopathy is present. There is no evidence for a bowel obstruction. The appendix is normal. There is sigmoid diverticulosis without evidence for acute diverticulitis. There are postoperative findings within the spine. Fat-containing right inguinal hernia is noted. IMPRESSION: 1. No urinary calculi or hydronephrosis. 2. No acute process within the abdomen or pelvis on unenhanced exam. Electronically signed by: Joseph Wiggins M.D. 06/13/2018 10:37 PM Dictated Date/Time: 06/13/2018 10:32 PM
[2018-06-13 22:40] LABS: ALBUMIN 3.5 gm/dl (3.4-5.0); CALCIUM 8.2 mg/dl (8.5-10.1); CREATININE 0.96 mg/dl (0.60-1.40); POTASSIUM 3.7 mmol/L (3.5-5.1)
[2018-06-13 23:14] VITALS: BP 136/78; PULSE 71; O2SAT 98
--- NOTE | 2018-06-14 18:42 | EMERGENCY ROOM VISIT NOTE ---
History Report prepared by Valorie: Aldair Pal Under the Supervision of: Dr. Huy Abreu M.D. First contact with patient: 21:15 Chief Complaint: ABDOMINAL PAIN Stated Complaint: L SIDE ABD PAIN History of Present Illness The patient is a 57 year old male who presents to the Emergency Room with complaints of left flank pain x1.5 hours. He describes the pain as sharp and notes it radiates into his back. The patient does not nausea and "feeling sick" all day, but denies vomiting or a fever. The patient states he had his gallbladder taken out x3 years ago, and has had intermittent diarrhea since. He notes he was put on Cholestyramine x2 weeks ago for this. He also notes he has had urinary urgency and dysuria the past few weeks and saw his Urologist for this. He states he was given a "sample of a medication" and took this. He notes taking it the past x1 week, but is unsure what it is. He denies hematuria. Source of History: patient Onset: 1.5 hours Position: abdomen (left flank) Symptom Intensity: moderate Quality: sharp Timing: waxes/wanes Associated Symptoms: + nausea, + back pain, + diarrhea (chronic), + urinary symptoms (dysuria and urinary urgency), No LOC, No fevers, No chills, No sorethroat, No cough, No neck pain, No vomiting, No rash Review of Systems See HPI for pertinent positives & negatives. A total of 10 systems reviewed and were otherwise negative. Constitutional: No fever, No chills Respiratory: No cough, No shortness of breath Cardiovascular: No chest pain Abdomen: + pain, + nausea, + diarrhea, No vomiting Genitourinary - Male: + dysuria, + urinary urgency, No hematuria Integumentary: No rash Past Medical & Surgical Medical Problems: (1) Lumbar stenosis with neurogenic claudication Family History FH: heart disease Hypertension Social History Smoking Status: Never Smoker Marital Status: Current/Historical Medications Scheduled Finasteride (Finasteride), 5 MG PO DAILY Hctz/Losartan (Hyzaar 12.5MG/100MG), 1 TAB PO DAILY Mirabegron (Myrbetriq Er), 1 DOSE PO DAILY Scheduled PRN Cholestyramine (Questran), 1 DOSE PO UD PRN for Diarrhea Allergies Coded Allergies: Grass (Unverified Allergy, Unknown, TREES,GRASS MOLDS-ITCHY EYES,STUFFY NOSE, 11/05/16) NO KNOWN DRUG ALLERGIES (Unverified Allergy, Unknown, NONE, 11/05/16) Physical Exam Vital Signs Date Time Temp Pulse Resp B/P (MAP) Pulse Ox O2 Delivery O2 Flow Rate FiO2 06/13/18 23:14 71 18 136/78 98 06/13/18 21:11 37.0 85 18 176/93 95 Room Air Physical Exam Constitutional: Vital signs reviewed. Eyes: Pupils are equal round reactive to light. Conjunctiva are noninjected. ENT: Pharynx is clear without erythema or exudate. Mucous membranes are moist. Neck supple without meningeal signs. Respiratory: Clear to auscultation bilaterally. Breath sounds are equal bilaterally. Cardiovascular: Regular rate and rhythm. No rubs or gallops. GI: No CVA tenderness; Soft, nondistended and nontender. Bowel sounds are present. Musculoskeletal: No peripheral edema. No lower extremity tenderness. Integumentary: No cyanosis. Neurological: The patient is awake and alert. No focal deficits. Psychiatric: Normal affect. Medical Decision & Procedures ER Provider Diagnostic Interpretation: [~ rep ct add3]] CT OF THE ABDOMEN AND PELVIS WITHOUT CONTRAST, STONE PROTOCOL CLINICAL HISTORY: Left flank pain. COMPARISON STUDY: CT of the abdomen and pelvis May 10, 2016. TECHNIQUE: Helical axial images of the abdomen and pelvis were obtained without IV or oral contrast according to renal stone protocol. A dose lowering technique was utilized adhering to the principles of ALARA. FINDINGS: Lung bases are clear. No renal, ureteral or bladder calculi are present. There is no hydronephrosis or hydroureter. Evaluation of the remainder of the abdomen and pelvis is suboptimal on this unenhanced exam. There is no biliary ductal dilatation status post cholecystectomy. Unenhanced images of the adrenal glands, spleen and pancreas are normal. There is no peripancreatic infiltration or pancreatic ductal dilatation. No abdominal or pelvic lymphadenopathy is present. There is no evidence for a bowel obstruction. The appendix is normal. There is sigmoid diverticulosis without evidence for acute diverticulitis. There are postoperative findings within the spine. Fat-containing right inguinal hernia is noted. IMPRESSION: 1. No urinary calculi or hydronephrosis. 2. No acute process within the abdomen or pelvis on unenhanced exam. Laboratory Results 06/13/18 22:00 Red Blood Count 4.21, Mean Corpuscular Volume 94.1, Mean Corpuscular Hemoglobin 33.3, Mean Corpuscular Hemoglobin Concent 35.4, Mean Platelet Volume 8.9, Neutrophils (%) (Auto) 54.7, Lymphocytes (%) (Auto) 35.9, Monocytes (%) (Auto) 7.2, Eosinophils (%) (Auto) 1.6, Basophils (%) (Auto) 0.5, Neutrophils # (Auto) 4.16, Lymphocytes # (Auto) 2.73, Monocytes # (Auto) 0.55, Eosinophils # (Auto) 0.12, Basophils # (Auto) 0.04 06/13/18 22:00 Test 06/13/18 22:00 White Blood Count 7.61 K/uL (4.8-10.8) Red Blood Count 4.21 M/uL (4.7-6.1) Hemoglobin 14.0 g/dL (14.0-18.0) Hematocrit 39.6 % (42-52) Mean Corpuscular Volume 94.1 fL (80-100) Mean Corpuscular Hemoglobin 33.3 pg (25-34) Mean Corpuscular Hemoglobin Concent 35.4 g/dl (32-36) Platelet Count 213 K/uL (130-400) Mean Platelet Volume 8.9 fL (7.4-10.4) Neutrophils (%) (Auto) 54.7 % Lymphocytes (%) (Auto) 35.9 % Monocytes (%) (Auto) 7.2 % Eosinophils (%) (Auto) 1.6 % Basophils (%) (Auto) 0.5 % Neutrophils # (Auto) 4.16 K/uL (1.4-6.5) Lymphocytes # (Auto) 2.73 K/uL (1.2-3.4) Monocytes # (Auto) 0.55 K/uL (0.11-0.59) Eosinophils # (Auto) 0.12 K/uL (0-0.5) Basophils # (Auto) 0.04 K/uL (0-0.2) RDW Standard Deviation 44.4 fL (36.4-46.3) RDW Coefficient of Variation 13.0 % (11.5-14.5) Immature Granulocyte % (Auto) 0.1 % Immature Granulocyte # (Auto) 0.01 K/uL (0.00-0.02) Urine Color YELLOW Urine Appearance CLEAR (CLEAR) Urine pH 5.0 (4.5-7.5) Urine Specific [place] 1.020 (1.000-1.030) Urine Protein NEG (NEG) Urine Glucose (UA) NEG (NEG) Urine Ketones NEG (NEG) Urine Occult Blood 2+ (NEG) Urine Nitrite NEG (NEG) Urine Bilirubin NEG (NEG) Urine Urobilinogen NEG (NEG) Urine Leukocyte Esterase NEG (NEG) Urine WBC (Auto) 0 /hpf (0-5) Urine RBC (Auto) 5-10 /hpf (0-4) Urine Hyaline Casts (Auto) 1-5 /lpf (0-5) Urine Epithelial Cells (Auto) 0-5 /lpf (0-5) Urine Bacteria (Auto) NEG (NEG) Anion Gap 9.0 mmol/L (3-11) Est Creatinine Clear Calc Drug Dose 115.2 ml/min Estimated GFR () 102.7 Estimated GFR (Non- 88.6 BUN/Creatinine Ratio 13.3 (10-20) Calcium Level 8.2 mg/dl (8.5-10.1) Total Bilirubin 0.9 mg/dl (0.2-1) Direct Bilirubin 0.2 mg/dl (0-0.2) Aspartate Amino Transf (AST/SGOT) 22 U/L (15-37) Alanine Aminotransferase (ALT/SGPT) 49 U/L (12-78) Alkaline Phosphatase 68 U/L (45-117) Total Protein 7.0 gm/dl (6.4-8.2) Albumin 3.5 gm/dl (3.4-5.0) Lipase 186 U/L (73-393) Medications Administered Medications (Trade) Dose Ordered Sig/Calista Route Start Time Stop Time Status Last Admin Dose Admin Ondansetron HCl (Zofran Inj) 4 mg NOW STAT IV 06/13/18 21:22 06/13/18 21:24 DC 06/13/18 22:10 4 MG Ketorolac Tromethamine (Toradol Inj) 10 mg NOW STAT IV 06/13/18 21:22 06/13/18 21:24 DC 06/13/18 22:10 10 MG Sodium Chloride 500 ml @ 999 mls/hr Q31M STAT IV 06/13/18 21:22 06/13/18 21:52 DC 06/13/18 22:10 999 MLS/HR ED Course Recheck: 2304: Discussed test results with patient. He is feeling much better. I recommended discharge and close follow up with PCP and patient agrees and verbalized understanding. All questions answered. Medical Decision This is a 57-year-old male who presents with left-sided flank pain. Differential diagnosis includes renal colic, hydronephrosis, diverticulitis, strain, UTI. I did perform a limited focused review of portions of the patient' s old chart on the electronic medical record. Patient had a CT in 2016 which showed mild chronic sigmoid diverticulosis without kidney stones. I did evaluate the patient as noted above. IV access was established. I did treat patient with IV Zofran, normal saline and Toradol IV. I did order and personally review the patient's urine analysis as described above. I did order and review the patient's blood work as noted in the electronic medical record. Blood work is unremarkable. I did order a CT of the abdomen and pelvis. I did review the images myself as well as the radiology report as described above. CT does not show any evidence of diverticulitis or renal calculi. I did reassess the patient. I did discuss the test results with the patient and his . The cause of his symptoms is unclear at this time. I did recommend close follow-up with his regular physician. He does state that he is feeling better. He was told to return should he have any worsening symptoms or develop any new concerning symptoms. Medication Reconcilliation Current Medication List: was personally reviewed by me Blood Pressure Screening Patient's blood pressure: Elevated blood pressure Blood pressure disposition: Referred to PCP Impression Primary Impression: LLQ abdominal pain Additional Impression: Right inguinal hernia Scribe Attestation The scribe's documentation has been prepared under my direct and personally reviewed by me in its entirety. I confirm that the note above accurately reflects all work, treatment, procedures, and medical decision making performed by me. Departure Information Dispostion Home / Self-Care Referrals Houston Shaffer M.D. (PCP) Forms Call Back Authorization, HOME CARE DOCUMENTATION FORM, IMPORTANT VISIT INFORMATION Patient Instructions [facility] Problem Qualifiers
== END 2018-06-13 23:07 | disposition home or self-care (01) ==
LOC: C.EDB 21:10
DX: R10.32 Left lower quadrant pain (principal); K40.90 Unilateral inguinal hernia, without obstruction or gangrene, not specified as recurrent; R03.0 Elevated blood-pressure reading, without diagnosis of hypertension; Z91.048 Other nonmedicinal substance allergy status

== ENCOUNTER 2023-04-20 17:19 | Observation (INO) ==
--- NOTE | 2023-04-20 17:51 | Emergency Department Note ---
Impression & Plan TIA (transient ischemic attack), Dizziness, Gait instability ED Provider Note HISTORY OF PRESENT ILLNESS: Patient is a 62-year-old male presenting with transient episodes of confusion and dizziness. Patient reports that earlier in the week he started having headache behind his bilateral eyes. He states that the headache was intermittent throughout the week and he developed some blurred vision and disorientation last night. He states that last night he tried to stand up when he became very unsteady on his feet and could not walk. He states that his vision was blurry and he had numbness in his bilateral upper extremities. He states the symptoms lasted for a few hours and he was able to go to bed and woke up feeling slightly improved. However, he does have some pressure behind his bilateral eyes today. Denies any vision changes today. Family member at bedside reports concern about patient's disorientation and his gait instability. Patient denies any recent head injury or chiropractic manipulation of his neck. Multiple family members have recently had strokes, prompting patient to present to the emergency department today. Denies any anticoagulation use. Denies any chest pain or shortness of breath. Denies any DVT or PE history. Denies any nausea, vomiting or fever. ROS: as above PHYSICAL EXAM: Constitutional: Patient appears in no acute distress. HENT: Head: Normocephalic and atraumatic. Eyes: EOMI, PERRL Mouth/Throat: Mucous membranes moist. Neck: Trachea midline. Neck supple. Cardiovascular: RRR, No murmurs, rubs or gallops. Intact distal pulses. Pulmonary/Chest: No respiratory distress. Breath sounds clear and equal bilaterally. No wheezes or rales. Abdominal: BS +. Abdomen soft, no tenderness, rebound or guarding. Musculoskeletal: No edema, tenderness or deformity noted. Skin: Warm and dry. No rash, erythema, pallor or cyanosis Psychiatric: Appropriate mood and affect for situation. Neurological: Alert and keenly responsive. Facies symmetric. Able to raise e yebrows, close eyes, smile, puff mouth, stick out tongue, move tongue left and right and raise palate symmetrically. Able to shrug shoulders. PERRLA. SILT to forehead below eye and at jawline. Can hear soft nose bilaterally. Good finger to nose and heel to koenig. Strength 5/5 in bilateral upper and lower extremities. SILT throughout bilateral upper and lower extremities. MDM: - Vitals signs showed hypertension. - History obtained via patient. Patient presents with transient episodes of confusion and dizziness. Patient reports has been having headaches intermitte ntly over the last week. He is also been having episodes of blurry vision and disorientation. Yesterday he had blurry vision, disorientation and gait instability. Symptoms lasted for a few hours at a time and went away. He reports that he has had numerous family members who have had strokes and he wanted to get evaluated. Denies any DVT or PE history. He is not on any anticoagulation. Denies any chest pain or shortness of breath. - Chronic conditions affecting care: HTN; GERD - Differential diagnoses include, but are not limited to: CVA; TIA; intracranial hemorrhage; ACS; electrolyte abnormality - Order placed for continuous cardiac monitoring. At this time, monitor showed rate of 80 bpm with normal sinus rhythm, per my interpretation. - External medical records reviewed. - EKG reviewed by myself showed normal sinus rhythm. Rate 87 bpm. QTc 440. No acute ischemic changes - Laboratory workup interpreted by myself showed normal WBC; slight hypokalemia (K 3.4); elevated total bilirubin (1.5); normal troponin - CXR negative for pneumonia, per my interpretation. - CT head wo contrast negative for acute pathology. - CTA head/neck negative for acute pathology. - Patient symptoms concerning for potential TIA. He is not on any anticoagulation at this time. Discussed options of discharge with follow-up versus admission for TIA work-up and the patient was agreeable to admission. - Discussion was had with child welfare social worker about patient's case and need for admission - Hospitalist, Dr. Berger, consulted for admission - [facility] ASSESSMENT AND PLAN: Diagnosis: TIA; dizziness Plan: admit Past Med/Surg History Medical History Allergic rhinitis Encounter for pre-operative examination Enlarged prostate with lower urinary tract symptoms (LUTS) GERD (gastroesophageal reflux disease) Hypertension Lumbar radiculopathy Lumbar stenosis with neurogenic claudication Right inguinal hernia Shortness of breath Surgical History History of esophagogastroduodenoscopy (EGD) History of lumbar fusion Hx laparoscopic cholecystectomy Hx of arthroscopic knee surgery Hx of colonoscopy with polypectomy Hx of parotidectomy Family History Father Prostate cancer Brother Prostate cancer Mother Myocardial infarction Heart disease Other Colonic polyp Denies family history of Ovarian cancer Breast cancer Lung cancer Social History Smoking Status: Never smoker Second Hand Exposure: No; Do You Dip or Chew Tobacco: No; Hx Alcohol Use: Yes Hx Substance Use: No Preferred Language: Maltese Communication Ability: Effective Research Study Assistant Required: No Beliefs That Will Affect Care: None Current Living Situation: Spouse Feels Safe at Home: Yes Assistive Devices: Glasses Allergies Allergies Allergy/AdvReac Type Severity Reaction Status Date / Time grass pollen-perennial rye, Allergy Intermediate TREES,GRASS Verified 04/20/23 19:16 standar MOLDS-ITCHY EYES,STUFFY NOSE Home Meds Home Medications Medication Instructions Recorded Confirmed fexofenadine 180 mg tablet 180 mg PO QAM 01/03/20 04/20/23 (Little Allergy) famotidine 20 mg tablet (Pepcid AC) 20 mg PO DAILY 04/20/23 04/20/23 Previous Rx's Medication Instructions Recorded amlodipine 5 mg tablet 5 mg PO QAM #90 tabs 08/27/22 cholestyramine (with sugar) 4 gram 1 ea PO DAILY #348.6 grams 08/27/22 oral powder hydrochlorothiazide 25 mg tablet 25 mg PO QAM #90 tabs 08/27/22 montelukast 10 mg tablet 10 mg PO QPM PRN allergies #30 tabs 03/29/23 (Singulair) Results & Data (ED) Vital Signs Vital Signs - 24 hr 04/20/23 17:20 04/20/23 17:34 04/20/23 17:58 Temperature 36.8 C Temperature Source Temporal Artery Scan Pulse Rate 94 H Pulse Rate from SpO2 Sensor Respiratory Rate 18 Respiratory Effort / Characteristics Non-Labored Respiratory Depth Normal Blood Pressure 159/104 H Blood Pressure Mean 122 Pulse Oximetry 95 95 Oxygen Delivery Method Room Air Room Air Room Air Sepsis Recent Fever Within 48 Hours No Sepsis New/Unexplained Change in Mental Status No Sepsis Action Taken by Nursing No Action Required 04/20/23 17:58 04/20/23 18:00 04/20/23 18:00 Temperature Temperature Source Pulse Rate 80 81 78 Pulse Rate from SpO2 Sensor 80 Respiratory Rate 13 16 Respiratory Effort / Characteristics Respiratory Depth Blood Pressure 136/89 Blood Pressure Mean 104 Pulse Oximetry 95 95 Oxygen Delivery Method Room Air Sepsis Recent Fever Within 48 Hours Sepsis New/Unexplained Change in Mental Status Sepsis Action Taken by Nursing 04/20/23 18:49 04/20/23 19:00 04/20/23 19:20 Temperature Temperature Source Pulse Rate 77 75 73 Pulse Rate from SpO2 Sensor Respiratory Rate 21 18 15 Respiratory Effort / Characteristics Respiratory Depth Blood Pressure 152/86 H Blood Pressure Mean 108 Pulse Oximetry 96 Oxygen Delivery Method Room Air Sepsis Recent Fever Within 48 Hours Sepsis New/Unexplained Change in Mental Status Sepsis Action Taken by Nursing 04/20/23 19:30 04/20/23 20:00 04/20/23 20:30 Temperature Temperature Source Pulse Rate 78 75 78 Pulse Rate from SpO2 Sensor Respiratory Rate 17 14 18 Respiratory Effort / Characteristics Respiratory Depth Blood Pressure 149/90 H 127/85 157/99 H Blood Pressure Mean 109 99 118 Pulse Oximetry 95 96 96 Oxygen Delivery Method Room Air Room Air Room Air Sepsis Recent Fever Within 48 Hours Sepsis New/Unexplained Change in Mental Status Sepsis Action Taken by Nursing 04/20/23 21:00 04/20/23 21:55 04/20/23 21:30 Temperature Temperature Source Pulse Rate 69 82 87 Pulse Rate from SpO2 Sensor Respiratory Rate 15 21 Respiratory Effort / Characteristics Respiratory Depth Blood Pressure Blood Pressure Mean Pulse Oximetry 96 Oxygen Delivery Method Room Air Sepsis Recent Fever Within 48 Hours Sepsis New/Unexplained Change in Mental Status Sepsis Action Taken by Nursing 04/20/23 22:00 Temperature Temperature Source Pulse Rate 79 Pulse Rate from SpO2 Sensor Respiratory Rate 15 Respiratory Effort / Characteristics Respiratory Depth Blood Pressure Blood Pressure Mean Pulse Oximetry Oxygen Delivery Method Sepsis Recent Fever Within 48 Hours Sepsis New/Unexplained Change in Mental Status Sepsis Action Taken by Nursing Laboratory Data 04/20/23 17:38 04/20/23 17:38 Lab Results 04/20/23 04/20/23 04/20/23 Range/Units 17:38 17:38 22:02 WBC 9.22 (4.8-10.8) K/ul RBC 4.71 (4.70-6.10) M/uL Hgb 15.6 (14.0-18.0) g/dl Hct 43.1 (42.0-52.0) % MCV 91.5 (80.0-100.0) fL MCH 33.1 (25.0-34.0) pg MCHC 36.2 H (32.0-36.0) g/dL RDW Std Deviation 41.1 (36.4-46.3) fL RDW Coeff of Bryon 12.2 (11.5-14.5) % Plt Count 217 (130-400) K/uL MPV 8.5 L (9.4-12.4) fL Immature Gran % (Auto) 0.4 % Neut % (Auto) 61.0 % Lymph % (Auto) 30.5 % [place] % (Auto) 6.9 % Eos % (Auto) 0.8 % Baso % (Auto) 0.4 % Neut # (Auto) 5.62 (1.40-6.50) K/uL Lymph # (Auto) 2.81 (1.2-3.4) K/uL [place] # (Auto) 0.64 H (0.11-0.59) K/uL Eos # (Auto) 0.07 (0-0.50) K/uL Baso # (Auto) 0.04 (0-0.2) K/uL Immature Gran # (Auto) 0.04 (0.01-0.20) K/uL Sodium 138 (136-145) mmol/L Potassium 3.4 L (3.5-5.1) mmol/L Chloride 106 (98-107) mmol/L Carbon Dioxide 25 (21-32) mmol/L Anion Gap 7 (3-11) BUN 21 (6-23) mg/dl Creatinine 1.15 (0.6-1.4) mg/dl Est Cr Clr Drug Dosing 89.4 ml/min Est GFR ( Amer) 79.7 ml/min Est GFR (Non-Af Amer) 68.8 ml/min BUN/Creatinine Ratio 18.3 (10-20) Glucose 88 (70-99(Fasting)) mg/dl Calcium 9.4 (8.6-10.3) mg/dl Magnesium 1.9 (1.7-2.4) mg/dl Total Bilirubin 1.5 H (0.2-1.0) mg/dl AST 17 (13-39) U/L ALT 20 (7-52) U/L Alkaline Phosphatase 63 (34-104) U/L Troponin I High Sens 3.6 (0-20) pg/ml Total Protein 7.6 (6.0-8.3) gm/dl Albumin 4.4 (3.4-5.0) gm/dl Globulin 3.2 (2.5-4.0) gm/dl Albumin/Globulin Ratio 1.4 (0.9-2) SARS-CoV-2, RNA, NAAT NEGATIVE (NEGATIVE) Administered Medications Discontinued Medications Ioversol (Optiray 320 125ml) 120 ml IV ONCE ONE Stop: 04/20/23 18:34 Last Admin: 04/20/23 18:34 Dose: 120 ml Documented By: ED[facility] Imaging Data Radiologist's Impression: Head CT 04/20/23 17:[address] OF THE BRAIN; CT ANGIOGRAM OF THE BRAIN; CT ANGIOGRAM OF THE NECK CLINICAL HISTORY: Dizziness. Gait instability. Change in mental status. COMPARISON STUDY: CT of the brain dated 04/04/2009. TECHNIQUE: Unenhanced axial CT scan of the brain is performed. Subsequently, following the IV administration of 120 of Optiray 320, CT angiogram of the head and neck was performed from the aortic arch to the vertex. Images are reviewed in the axial, sagittal, and coronal planes. 3-D MIPS images are created and assessed. IV contrast was administered without complication. All measurements were calculated based on NASCET criteria. A dose lowering technique was utilized adhering to the principles of ALARA. CT DOSE: 1177.50 mGy.cm FINDINGS: Brain parenchyma: The brain parenchyma is normal in appearance. There is no hemorrhage, mass effect, or evidence of acute territorial ischemia by CT criteria. There is no evidence of enhancing mass lesion on the angiogram phase images. The ventricles, sulci, and cisterns are normal in configuration. There is faint mineralization in the basal ganglia. Dean-white matter differentiation is preserved. No extra-axial fluid collection is seen. Thoracic aorta: Visualized portions of the thoracic aorta are normal in caliber. The aortic arch demonstrates standard 3-vessel anatomy. Right carotid arterial system: The right common carotid artery is widely patent, as are the right internal and external carotid arteries. There is minimal calcified plaque in the carotid bulb. Left carotid arterial system: The left common carotid artery is widely patent, as are the left internal and external carotid arteries. There is minimal calcified plaque in the carotid bulb. Vertebral arteries: The vertebral arteries are widely patent bilaterally and codominant. Subclavian arteries: Widely patent bilaterally. Intracranial vasculature: The internal carotid arteries are patent at the skull base, as are the anterior and middle cerebral arteries bilaterally. The vertebrobasilar system and posterior cerebral arteries are widely patent. The vertebral arteries are codominant. There is a right posterior communicating artery. There is no aneurysm, high-grade stenosis, or focal vessel cut off seen throughout the intracranial circulation. Jugular veins: Patent bilaterally. Dural sinuses: Patent. Lung apices: Partially visualized upper lobe lung parenchyma appears clear. Soft tissues: The visualized pharyngeal soft tissues are normal in appearance noting angiographic phase technique. The oropharyngeal airway appears widely patent. The salivary and thyroid glands are normal in appearance. No cervical lymphadenopathy is seen. Skeletal structures: The calvarium appears intact. The cervical spine is within normal limits. Orbits: The bony orbits are intact. Orbital contents are normal as visualized. Sinuses and mastoids: A tension cysts in the maxillary antra measure up to 2.1 cm. The paranasal sinuses are otherwise clear. The mastoid air cells are well pneumatized. IMPRESSION: 1. There is no hemorrhage, mass effect, or evidence of acute territorial ischemia by CT criteria. 2. Unremarkable CT angiogram of the brain. 3. Unremarkable CT angiogram of the neck. ACT 112: Negative or not required by law. Electronically signed by: Eduardo Gu M.D. 04/20/2023 6:53 PM Head CTA 04/20/23 17:[address] OF THE BRAIN; CT ANGIOGRAM OF THE BRAIN; CT ANGIOGRAM OF THE NECK CLINICAL HISTORY: Dizziness. Gait instability. Change in mental status. COMPARISON STUDY: CT of the brain dated 04/04/2009. TECHNIQUE: Unenhanced axial CT scan of the brain is performed. Subsequently, following the IV administration of 120 of Optiray 320, CT angiogram of the head and neck was performed from the aortic arch to the vertex. Images are reviewed in the axial, sagittal, and coronal planes. 3-D MIPS images are created and assessed. IV contrast was administered without complication. All measurements were calculated based on NASCET criteria. A dose lowering technique was utilized adhering to the principles of ALARA. CT DOSE: 1177.50 mGy.cm FINDINGS: Brain parenchyma: The brain parenchyma is normal in appearance. There is no hemorrhage, mass effect, or evidence of acute territorial ischemia by CT criteria. There is no evidence of enhancing mass lesion on the angiogram phase images. The ventricles, sulci, and cisterns are normal in configuration. There is faint mineralization in the basal ganglia. Dean-white matter differentiation is preserved. No extra-axial fluid collection is seen. Thoracic aorta: Visualized portions of the thoracic aorta are normal in caliber. The aortic arch demonstrates standard 3-vessel anatomy. Right carotid arterial system: The right common carotid artery is widely patent, as are the right internal and external carotid arteries. There is minimal calcified plaque in the carotid bulb. Left carotid arterial system: The left common carotid artery is widely patent, as are the left internal and external carotid arteries. There is minimal calcified plaque in the carotid bulb. Vertebral arteries: The vertebral arteries are widely patent bilaterally and codominant. Subclavian arteries: Widely patent bilaterally. Intracranial vasculature: The internal carotid arteries are patent at the skull base, as are the anterior and middle cerebral arteries bilaterally. The vertebrobasilar system and posterior cerebral arteries are widely patent. The vertebral arteries are codominant. There is a right posterior communicating artery. There is no aneurysm, high-grade stenosis, or focal vessel cut off seen throughout the intracranial circulation. Jugular veins: Patent bilaterally. Dural sinuses: Patent. Lung apices: Partially visualized upper lobe lung parenchyma appears clear. Soft tissues: The visualized pharyngeal soft tissues are normal in appearance noting angiographic phase technique. The oropharyngeal airway appears widely patent. The salivary and thyroid glands are normal in appearance. No cervical lymphadenopathy is seen. Skeletal structures: The calvarium appears intact. The cervical spine is within normal limits. Orbits: The bony orbits are intact. Orbital contents are normal as visualized. Sinuses and mastoids: A tension cysts in the maxillary antra measure up to 2.1 cm. The paranasal sinuses are otherwise clear. The mastoid air cells are well pneumatized. IMPRESSION: 1. There is no hemorrhage, mass effect, or evidence of acute territorial ischemia by CT criteria. 2. Unremarkable CT angiogram of the brain. 3. Unremarkable CT angiogram of the neck. ACT 112: Negative or not required by law. Electronically signed by: Eduardo Gu M.D. 04/20/2023 6:53 PM Neck CTA 04/20/23 17:[address] OF THE BRAIN; CT ANGIOGRAM OF THE BRAIN; CT ANGIOGRAM OF THE NECK CLINICAL HISTORY: Dizziness. Gait instability. Change in mental status. COMPARISON STUDY: CT of the brain dated 04/04/2009. TECHNIQUE: Unenhanced axial CT scan of the brain is performed. Subsequently, following the IV administration of 120 of Optiray 320, CT angiogram of the head and neck was performed from the aortic arch to the vertex. Images are reviewed in the axial, sagittal, and coronal planes. 3-D MIPS images are created and assessed. IV contrast was administered without complication. All measurements were calculated based on NASCET criteria. A dose lowering technique was utilized adhering to the principles of ALARA. CT DOSE: 1177.50 mGy.cm FINDINGS: Brain parenchyma: The brain parenchyma is normal in appearance. There is no hemorrhage, mass effect, or evidence of acute territorial ischemia by CT criteria. There is no evidence of enhancing mass lesion on the angiogram phase images. The ventricles, sulci, and cisterns are normal in configuration. There is faint mineralization in the basal ganglia. Dean-white matter differentiation is preserved. No extra-axial fluid collection is seen. Thoracic aorta: Visualized portions of the thoracic aorta are normal in caliber. The aortic arch demonstrates standard 3-vessel anatomy. Right carotid arterial system: The right common carotid artery is widely patent, as are the right internal and external carotid arteries. There is minimal calcified plaque in the carotid bulb. Left carotid arterial system: The left common carotid artery is widely patent, as are the left internal and external carotid arteries. There is minimal calcified plaque in the carotid bulb. Vertebral arteries: The vertebral arteries are widely patent bilaterally and codominant. Subclavian arteries: Widely patent bilaterally. Intracranial vasculature: The internal carotid arteries are patent at the skull base, as are the anterior and middle cerebral arteries bilaterally. The vertebrobasilar system and posterior cerebral arteries are widely patent. The vertebral arteries are codominant. There is a right posterior communicating artery. There is no aneurysm, high-grade stenosis, or focal vessel cut off seen throughout the intracranial circulation. Jugular veins: Patent bilaterally. Dural sinuses: Patent. Lung apices: Partially visualized upper lobe lung parenchyma appears clear. Soft tissues: The visualized pharyngeal soft tissues are normal in appearance noting angiographic phase technique. The oropharyngeal airway appears widely patent. The salivary and thyroid glands are normal in appearance. No cervical lymphadenopathy is seen. Skeletal structures: The calvarium appears intact. The cervical spine is within normal limits. Orbits: The bony orbits are intact. Orbital contents are normal as visualized. Sinuses and mastoids: A tension cysts in the maxillary antra measure up to 2.1 cm. The paranasal sinuses are otherwise clear. The mastoid air cells are well pneumatized. IMPRESSION: 1. There is no hemorrhage, mass effect, or evidence of acute territorial ischemia by CT criteria. 2. Unremarkable CT angiogram of the brain. 3. Unremarkable CT angiogram of the neck. ACT 112: Negative or not required by law. Electronically signed by: Eduardo Gu M.D. 04/20/2023 6:53 PM Chest X-Ray 04/20/23 17:49 TWO VIEW CHEST CLINICAL HISTORY: Dizziness. Change in mental status.. FINDINGS: PA and lateral chest radiographs are compared to study dated 05/11/2022 and correlated with chest CT dated 11/10/2017. The cardiomediastinal silhouette is top normal for projection. There is mild bibasilar scarring/atelectasis. The lungs and pleural spaces are otherwise clear. There is no pneumothorax. The bony thorax appears intact. Cholecystectomy clips are seen in the right upper quadrant. IMPRESSION: No active disease in the chest. ACT 112: Negative or not required by law. Electronically signed by: Eduardo Gu M.D. 04/20/2023 6:56 PM Discharge Plan Visit Data Chief Complaint: Neuro Symptoms/Deficit Stated Complaint: CONFUSION, OFF BALANCE, BLURRED VISION ED Provider: Lauren Garcia Discharge Problem: TIA (transient ischemic attack), Dizziness, Gait instability Forms Stand Alone Forms: [facility] [employer] Prescriptions Prescriptions: No Action montelukast [Singulair] 10 mg tablet 10 mg PO QPM PRN (Reason: allergies) Qty: 30 2RF amlodipine 5 mg tablet 5 mg PO QAM Qty: 90 3RF hydrochlorothiazide 25 mg tablet 25 mg PO QAM Qty: 90 3RF cholestyramine (with sugar) 4 gram powder 1 ea PO DAILY Qty: 348.6 5RF Rx Instructions: 1 scoop daily fexofenadine [Little Allergy] 180 mg Tablet 180 mg PO QAM famotidine [Pepcid AC] 20 mg Tablet 20 mg PO DAILY Referrals Referrals: Miles Feldman DO [Physician] -
[2023-04-20 18:00] LABS: Basophils # (auto) 0.04 K/uL (0-0.2); Basophils % (auto) 0.4 %; Eosinophils # (auto) 0.07 K/uL (0-0.50); Eosinophils % (auto) 0.8 %; Hematocrit (blood only) 43.1 % (42.0-52.0); Hemoglobin 15.6 g/dl (14.0-18.0); Immature Granulocytes # (auto) 0.04 K/uL (0.01-0.20); Immature Granulocytes % (auto) 0.4 %; Lymphocytes # (auto) 2.81 K/uL (1.2-3.4); Lymphocytes % (auto) 30.5 %; Mean Corpuscular Hemoglobin 33.1 pg (25.0-34.0); Mean Corpuscular Hgb Conc 36.2 g/dL (32.0-36.0); Mean Corpuscular Volume 91.5 fL (80.0-100.0); Mean Platelet Volume 8.5 fL (9.4-12.4); Monocytes # (auto) 0.64 K/uL (0.11-0.59); Monocytes % (auto) 6.9 %; Neutrophils # (auto) 5.62 K/uL (1.40-6.50); Platelet Count 217 K/uL (130-400); RDW Coefficient of Variation 12.2 % (11.5-14.5); RDW Standard Deviation 41.1 fL (36.4-46.3); Red Blood Count 4.71 M/uL (4.70-6.10); White Blood Count 9.22 K/ul (4.8-10.8)
[2023-04-20 18:15] LABS: Albumin Globulin Ratio 1.4 (0.9-2); Albumin Level 4.4 gm/dl (3.4-5.0); BUN Creatinine Ratio 18.3 (10-20); Bilirubin,Total 1.5 mg/dl (0.2-1.0); Calcium 9.4 mg/dl (8.6-10.3); Creatinine Clr Calc Pharmacy 89.4 ml/min; Est GFR (African American) 79.7 ml/min; Est GFR (Non-African American) 68.8 ml/min; Globulin 3.2 gm/dl (2.5-4.0); Magnesium 1.9 mg/dl (1.7-2.4); Potassium 3.4 mmol/L (3.5-5.1); Total Protein 7.6 gm/dl (6.0-8.3)
[2023-04-20 18:21] LABS: Troponin I High Sensitivity 3.6 pg/ml (0-20)
[2023-04-20] MEDS ORDERED: OPTIRAY 320 125ml IV ONE (18:33)
--- NOTE | 2023-04-20 18:55 | CT Scan Report ---
UNENHANCED CT OF THE BRAIN; CT ANGIOGRAM OF THE BRAIN; CT ANGIOGRAM OF THE NECK CLINICAL HISTORY: Dizziness. Gait instability. Change in mental status. COMPARISON STUDY: CT of the brain dated 04/04/2009. TECHNIQUE: Unenhanced axial CT scan of the brain is performed. Subsequently, following the IV adminis tration of 120 of Optiray 320, CT angiogram of the head and neck was performed from the aortic arch t o the vertex. Images are reviewed in the axial, sagittal, and coronal planes. 3-D MIPS images are cre ated and assessed. IV contrast was administered without complication. All measurements were calculate d based on NASCET criteria. A dose lowering technique was utilized adhering to the principles of ALA RA. CT DOSE: 1177.50 mGy.cm FINDINGS: Brain parenchyma: The brain parenchyma is normal in appearance. There is no hemorrhage, mass effect, or evidence of acute territorial ischemia by CT criteria. There is no evidence of enhancing mass lesi on on the angiogram phase images. The ventricles, sulci, and cisterns are normal in configuration. Th ere is faint mineralization in the basal ganglia. Dean-white matter differentiation is preserved. No extra-axial fluid collection is seen. Thoracic aorta: Visualized portions of the thoracic aorta are normal in caliber. The aortic arch demo nstrates standard 3-vessel anatomy. Right carotid arterial system: The right common carotid artery is widely patent, as are the right int ernal and external carotid arteries. There is minimal calcified plaque in the carotid bulb. Left carotid arterial system: The left common carotid artery is widely patent, as are the left internal combustion engine subassembler al and external carotid arteries. There is minimal calcified plaque in the carotid bulb. Vertebral arteries: The vertebral arteries are widely patent bilaterally and codominant. Subclavian arteries: Widely patent bilaterally. Intracranial vasculature: The internal carotid arteries are patent at the skull base, as are the ante rior and middle cerebral arteries bilaterally. The vertebrobasilar system and posterior cerebral jie shraddha are widely patent. The vertebral arteries are codominant. There is a right posterior communicati ng artery. There is no aneurysm, high-grade stenosis, or focal vessel cut off seen throughout the int racranial circulation. Jugular veins: Patent bilaterally. Dural sinuses: Patent. Lung apices: Partially visualized upper lobe lung parenchyma appears clear. Soft tissues: The visualized pharyngeal soft tissues are normal in appearance noting angiographic pha se technique. The oropharyngeal airway appears widely patent. The salivary and thyroid glands are nor mal in appearance. No cervical lymphadenopathy is seen. Skeletal structures: The calvarium appears intact. The cervical spine is within normal limits. Orbits: The bony orbits are intact. Orbital contents are normal as visualized. Sinuses and mastoids: A tension cysts in the maxillary antra measure up to 2.1 cm. The paranasal sinu ses are otherwise clear. The mastoid air cells are well pneumatized. IMPRESSION: 1. There is no hemorrhage, mass effect, or evidence of acute territorial ischemia by CT criteria. 2. Unremarkable CT angiogram of the brain. 3. Unremarkable CT angiogram of the neck. ACT 112: Negative or not required by law. Electronically signed by: Eduardo Gu M.D. 04/20/2023 6:53 PM
--- NOTE | 2023-04-20 18:57 | XRay Report ---
TWO VIEW CHEST CLINICAL HISTORY: Dizziness. Change in mental status.. FINDINGS: PA and lateral chest radiographs are compared to study dated 05/11/2022 and correlated with c hest CT dated 11/10/2017. The cardiomediastinal silhouette is top normal for projection. There is mild bibasilar scarring/atelectasis. The lungs and pleural spaces are otherwise clear. There is no pneumo thorax. The bony thorax appears intact. Cholecystectomy clips are seen in the right upper quadrant. IMPRESSION: No active disease in the chest. ACT 112: Negative or not required by law. Electronically signed by: Eduardo Gu M.D. 04/20/2023 6:56 PM
--- NOTE | 2023-04-20 22:41 | History & Physical Report ---
Date of Service April 20, 2023 Assessment & Plan (1) Dizziness: Plan: 62yo male with history of HTN presenting with several days of episodic HUFF, dizziness, gait instability and visual disturbance. He is afebrile, HD stable on exam. No neurological findings on physical exam. CT as well as CTA Head and Neck are unremarkable. Ddx to include TIA, CVA, migraine -Observation to medical with telemetry -Neuro checks per protocol -Check HgbA1C and Lipid panel for risk assessment -Check MRI brain -Check 2D echo -Initiate ASA 81mg po daily for now - if MRI is negative would DC -Tylenol PRN HUFF (2) Hypertension: Plan: Blood pressure well controlled at present -Continue HCTZ -Continue to monitor (3) GERD (gastroesophageal reflux disease): Plan: Chronic. Patient reports baseline abdominal discomfort secondary to GERD. Unchanged -Continue Pepcid F/E/N - Heplock. K repletion with 40mEq, repeat chemistry in AM, Heart healthy diet as tolerated Ppx - Low risk for DVT Code - Full per discussion with patient Dispo - Observation to medical Patient would appreciate early discharge if possible History of Present Illness Chief Complaint: intermittent dizziness and blurry vision Primary Care Provider: Zach Nettles MD Eddie Neri is a 62yo male with history of HTN and GERD presenting with episodic dizziness and blurry vision. Patient's symptoms began on 04/15/23 with intermittent HUFF which he describes as pressure, located predominantly posterior head and behind his eyes. He has taken Tylenol with some relief. His HUFF worsened over the and and he began having episodes of dizziness/lightheadedness and gait instability as well as blurry "Hazy" vision. Today he felt numbness and tingling in both arms which lasted several hours and has since resolved. He has been having more frequent palpitations this week as well. Otherwise, he denies visual loss or amarosis fugax, denies chest pain, cough, SOB, vomiting or diarrhea. He has chronic abdominal discomfort secondary to GERD which he reports as unchanged. No facial droop, slurred speech or confusion. No fever, chills or urinary complaints. No complaints at present. With mild dull headache. In the ER he is afebrile, mildly hypertensive, otherwise HD stable. Allergies Allergy/AdvReac Type Severity Reaction Status Date / Time grass pollen-perennial rye, Allergy Intermediate TREES,GRASS Verified 04/20/23 19:16 standar MOLDS-ITCHY EYES,STUFFY NOSE Home Medications Medication Instructions Recorded Confirmed Type fexofenadine 180 mg tablet 180 mg PO QAM 01/03/20 04/20/23 History (Little Allergy) amlodipine 5 mg tablet 5 mg PO QAM #90 tabs 08/27/22 04/20/23 Rx cholestyramine (with sugar) 4 gram 1 ea PO DAILY #348.6 grams 08/27/22 04/20/23 Rx oral powder hydrochlorothiazide 25 mg tablet 25 mg PO QAM #90 tabs 08/27/22 04/20/23 Rx montelukast 10 mg tablet 10 mg PO QPM PRN allergies #30 tabs 03/29/23 04/20/23 Rx (Singulair) famotidine 20 mg tablet (Pepcid AC) 20 mg PO DAILY 04/20/23 04/20/23 History Past Med/Surg History Medical History Allergic rhinitis Encounter for pre-operative examination Enlarged prostate with lower urinary tract symptoms (LUTS) GERD (gastroesophageal reflux disease) Hypertension Lumbar radiculopathy Lumbar stenosis with neurogenic claudication Right inguinal hernia Shortness of breath Surgical History History of esophagogastroduodenoscopy (EGD) History of lumbar fusion rods, screws, and cage Hx laparoscopic cholecystectomy Hx of arthroscopic knee surgery rt/lt Hx of colonoscopy with polypectomy Hx of parotidectomy rt. Family History Father Prostate cancer Brother Prostate cancer Mother Myocardial infarction Heart disease Other Colonic polyp Denies family history of Ovarian cancer Breast cancer Lung cancer Social History Smoking Status: Never smoker Second Hand Exposure: No; Do You Dip or Chew Tobacco: No; Hx Alcohol Use: Yes Hx Substance Use: No Preferred Language: Mauritanian Communication Ability: Effective Test Automation Architect Required: No Beliefs That Will Affect Care: None Current Living Situation: Spouse Feels Safe at Home: Yes Assistive Devices: Glasses Review of Systems Review of Systems: All systems reviewed & are unremarkable except as noted in HPI & below Physical Exam Physical Exam: General: patient resting comfortably, NAD, non-toxic in appearance, AA&O x 4 Skin: warm, dry, intact, no rashes or lesions HEENT: NC/AT, PERRL, EOMI, anicteric sclera, conjunctiva without injection, external ear normal to inspection and nontender, nares patent, moist mucus membranes, dentition intact, no oropharyngeal lesions, neck supple, trachea midline, no LAD, no thyromegaly, no JVD Heart: +S1/S2, regular, no m/r/g, no bruits Lungs: equal air entry bilaterally, no rales/rhonchi/wheezes Abd: +BS, soft, NT/ND, no masses/organomegaly/ascites Ext: warm, 2+ pulses in UE/LE bilaterally, no clubbing/cyanosis or edema Neuro:AA&O x 4, speech clear and appropriate, no facial droop, CN II-XII intact with exception of mildly diminished hearing in left ear which is baseline, sensation to light touch equal in bilateral UE/LE, MS 5/5 in UE/LE bilaterally, intact [id number] and [id number] testing, no pronator drift, gait not assessed Results & Data Results & Data Vital Signs (Past 12 Hours) Vital Signs Temp Pulse Resp BP Pulse Ox O2 Del Method 04/20/23 22:00 79 15 04/20/23 21:30 87 21 04/20/23 21:55 82 04/20/23 21:00 69 15 96 Room Air 04/20/23 20:30 78 18 157/99 H 96 Room Air 04/20/23 20:00 75 14 127/85 96 Room Air 04/20/23 19:30 78 17 149/90 H 95 Room Air 04/20/23 19:20 73 15 152/86 H 96 Room Air 04/20/23 19:00 75 18 04/20/23 18:49 77 21 04/20/23 18:00 78 16 136/89 95 Room Air 04/20/23 18:00 81 04/20/23 17:58 80 13 95 04/20/23 17:58 95 Room Air 04/20/23 17:34 Room Air 04/20/23 17:20 36.8 C 94 H 18 159/104 H 95 Room Air Laboratory Results Laboratory Results WBC 9.22 K/ul (4.8-10.8) 04/20/23 17: RBC 4.71 M/uL (4.70-6.10) 04/20/23 17:38 Hgb 15.6 g/dl (14.0-18.0) 04/20/23 17:38 Hct 43.1 % (42.0-52.0) 04/20/23 17: MCV 91.5 fL (80.0-100.0) 04/20/23 17: MCH 33.1 pg (25.0-34.0) 04/20/23 17: MCHC 36.2 g/dL (32.0-36.0) H 04/20/23 17: RDW Std Deviation 41.1 fL (36.4-46.3) 04/20/23: RDW Coeff of Bryon 12.2 % (11.5-14.5) 04/20/23: Plt Count 217 K/uL (130-400) 04/20/23 17: MPV 8.5 fL (9.4-12.4) L 04/20/23 17:38 Immature Gran % (Auto) 0.4 % 04/20/23 17:38 Neut % (Auto) 61.0 % 04/20/23 17:38 Lymph % (Auto) 30.5 % 04/20/23 17:38 [place] % (Auto) 6.9 % 04/20/23 17:38 Eos % (Auto) 0.8 % 04/20/23 17:38 Baso % (Auto) 0.4 % 04/20/23 17:38 Neut # (Auto) 5.62 K/uL (1.40-6.50) 04/20/23 17:38 Lymph # (Auto) 2.81 K/uL (1.2-3.4) 04/20/23 17:38 [place] # (Auto) 0.64 K/uL (0.11-0.59) H 04/20/23 17:38 Eos # (Auto) 0.07 K/uL (0-0.50) 04/20/23 17: Baso # (Auto) 0.04 K/uL (0-0.2) 04/20/23 17:38 Immature Gran # (Auto) 0.04 K/uL (0.01-0.20) 04/20/23 17:38 Sodium 138 mmol/L (136-145) 04/20/23 17:38 Potassium 3.4 mmol/L (3.5-5.1) L 04/20/23 17:38 Chloride 106 mmol/L (98-107) 04/20/23 17:38 Carbon Dioxide 25 mmol/L (21-32) 04/20/23 17:38 Anion Gap 7 (3-11) 04/20/23 17:38 BUN 21 mg/dl (6-23) 04/20/23 17:38 Creatinine 1.15 mg/dl (0.6-1.4) 04/20/23 17:38 Est Cr Clr Drug Dosing 89.4 ml/min 04/20/23 17:38 Est GFR ( Amer) 79.7 ml/min 04/20/23 17:38 Est GFR (Non-Af Amer) 68.8 ml/min 04/20/23 17:38 BUN/Creatinine Ratio 18.3 (10-20) 04/20/23 17:38 Glucose 88 mg/dl (70-99(Fasting)) 04/20/23 17:38 Calcium 9.4 mg/dl (8.6-10.3) 04/20/23 17:38 Magnesium 1.9 mg/dl (1.7-2.4) 04/20/23 17:38 Total Bilirubin 1.5 mg/dl (0.2-1.0) H 04/20/23 17:38 AST 17 U/L (13-39) 04/20/23 17:38 ALT 20 U/L (7-52) 04/20/23 17:38 Alkaline Phosphatase 63 U/L (34-104) 04/20/23 17:38 Troponin I High Sens 3.6 pg/ml (0-20) 04/20/23 17:38 Total Protein 7.6 gm/dl (6.0-8.3) 04/20/23 17:38 Albumin 4.4 gm/dl (3.4-5.0) 04/20/23 17:38 Globulin 3.2 gm/dl (2.5-4.0) 04/20/23 17:38 Albumin/Globulin Ratio 1.4 (0.9-2) 04/20/23 17:38 SARS-CoV-2, RNA, NAAT NEGATIVE (NEGATIVE) 04/20/23 22:[address] 04/20/23 17:[address] OF THE BRAIN; CT ANGIOGRAM OF THE BRAIN; CT ANGIOGRAM OF THE NECK CLINICAL HISTORY: Dizziness. Gait instability. Change in mental status. COMPARISON STUDY: CT of the brain dated 04/04/2009. TECHNIQUE: Unenhanced axial CT scan of the brain is performed. Subsequently, following the IV administration of 120 of Optiray 320, CT angiogram of the head and neck was performed from the aortic arch to the vertex. Images are reviewed in the axial, sagittal, and coronal planes. 3-D MIPS images are created and assessed. IV contrast was administered without complication. All measurements were calculated based on NASCET criteria. A dose lowering technique was utilized adhering to the principles of ALARA. CT DOSE: 1177.50 mGy.cm FINDINGS: Brain parenchyma: The brain parenchyma is normal in appearance. There is no hemorrhage, mass effect, or evidence of acute territorial ischemia by CT criteria. There is no evidence of enhancing mass lesion on the angiogram phase images. The ventricles, sulci, and cisterns are normal in configuration. There is faint mineralization in the basal ganglia. Dean-white matter differentiation is preserved. No extra-axial fluid collection is seen. Thoracic aorta: Visualized portions of the thoracic aorta are normal in caliber. The aortic arch demonstrates standard 3-vessel anatomy. Right carotid arterial system: The right common carotid artery is widely patent, as are the right internal and external carotid arteries. There is minimal calcified plaque in the carotid bulb. Left carotid arterial system: The left common carotid artery is widely patent, as are the left internal and external carotid arteries. There is minimal calcified plaque in the carotid bulb. Vertebral arteries: The vertebral arteries are widely patent bilaterally and codominant. Subclavian arteries: Widely patent bilaterally. Intracranial vasculature: The internal carotid arteries are patent at the skull base, as are the anterior and middle cerebral arteries bilaterally. The vertebrobasilar system and posterior cerebral arteries are widely patent. The vertebral arteries are codominant. There is a right posterior communicating artery. There is no aneurysm, high-grade stenosis, or focal vessel cut off seen throughout the intracranial circulation. Jugular veins: Patent bilaterally. Dural sinuses: Patent. Lung apices: Partially visualized upper lobe lung parenchyma appears clear. Soft tissues: The visualized pharyngeal soft tissues are normal in appearance noting angiographic phase technique. The oropharyngeal airway appears widely patent. The salivary and thyroid glands are normal in appearance. No cervical lymphadenopathy is seen. Skeletal structures: The calvarium appears intact. The cervical spine is within normal limits. Orbits: The bony orbits are intact. Orbital contents are normal as visualized. Sinuses and mastoids: A tension cysts in the maxillary antra measure up to 2.1 cm. The paranasal sinuses are otherwise clear. The mastoid air cells are well pneumatized. IMPRESSION: 1. There is no hemorrhage, mass effect, or evidence of acute territorial ischemia by CT criteria. 2. Unremarkable CT angiogram of the brain. 3. Unremarkable CT angiogram of the neck. ACT 112: Negative or not required by law. Electronically signed by: Eduardo Gu M.D. 04/20/2023 6:53 PM Head CTA 04/20/23 17:[address] OF THE BRAIN; CT ANGIOGRAM OF THE BRAIN; CT ANGIOGRAM OF THE NECK CLINICAL HISTORY: Dizziness. Gait instability. Change in mental status. COMPARISON STUDY: CT of the brain dated 04/04/2009. TECHNIQUE: Unenhanced axial CT scan of the brain is performed. Subsequently, following the IV administration of 120 of Optiray 320, CT angiogram of the head and neck was performed from the aortic arch to the vertex. Images are reviewed in the axial, sagittal, and coronal planes. 3-D MIPS images are created and assessed. IV contrast was administered without complication. All measurements were calculated based on NASCET criteria. A dose lowering technique was utilized adhering to the principles of ALARA. CT DOSE: 1177.50 mGy.cm FINDINGS: Brain parenchyma: The brain parenchyma is normal in appearance. There is no hemorrhage, mass effect, or evidence of acute territorial ischemia by CT criteria. There is no evidence of enhancing mass lesion on the angiogram phase images. The ventricles, sulci, and cisterns are normal in configuration. There is faint mineralization in the basal ganglia. Dean-white matter differentiation is preserved. No extra-axial fluid collection is seen. Thoracic aorta: Visualized portions of the thoracic aorta are normal in caliber. The aortic arch demonstrates standard 3-vessel anatomy. Right carotid arterial system: The right common carotid artery is widely patent, as are the right internal and external carotid arteries. There is minimal calcified plaque in the carotid bulb. Left carotid arterial system: The left common carotid artery is widely patent, as are the left internal and external carotid arteries. There is minimal calcified plaque in the carotid bulb. Vertebral arteries: The vertebral arteries are widely patent bilaterally and codominant. Subclavian arteries: Widely patent bilaterally. Intracranial vasculature: The internal carotid arteries are patent at the skull base, as are the anterior and middle cerebral arteries bilaterally. The vertebrobasilar system and posterior cerebral arteries are widely patent. The vertebral arteries are codominant. There is a right posterior communicating artery. There is no aneurysm, high-grade stenosis, or focal vessel cut off seen throughout the intracranial circulation. Jugular veins: Patent bilaterally. Dural sinuses: Patent. Lung apices: Partially visualized upper lobe lung parenchyma appears clear. Soft tissues: The visualized pharyngeal soft tissues are normal in appearance noting angiographic phase technique. The oropharyngeal airway appears widely patent. The salivary and thyroid glands are normal in appearance. No cervical lymphadenopathy is seen. Skeletal structures: The calvarium appears intact. The cervical spine is within normal limits. Orbits: The bony orbits are intact. Orbital contents are normal as visualized. Sinuses and mastoids: A tension cysts in the maxillary antra measure up to 2.1 cm. The paranasal sinuses are otherwise clear. The mastoid air cells are well pneumatized. IMPRESSION: 1. There is no hemorrhage, mass effect, or evidence of acute territorial ischemia by CT criteria. 2. Unremarkable CT angiogram of the brain. 3. Unremarkable CT angiogram of the neck. ACT 112: Negative or not required by law. Electronically signed by: Eduardo Gu M.D. 04/20/2023 6:53 PM Neck CTA 04/20/23 17:[address] OF THE BRAIN; CT ANGIOGRAM OF THE BRAIN; CT ANGIOGRAM OF THE NECK CLINICAL HISTORY: Dizziness. Gait instability. Change in mental status. COMPARISON STUDY: CT of the brain dated 04/04/2009. TECHNIQUE: Unenhanced axial CT scan of the brain is performed. Subsequently, following the IV administration of 120 of Optiray 320, CT angiogram of the head and neck was performed from the aortic arch to the vertex. Images are reviewed in the axial, sagittal, and coronal planes. 3-D MIPS images are created and assessed. IV contrast was administered without complication. All measurements were calculated based on NASCET criteria. A dose lowering technique was utilized adhering to the principles of ALARA. CT DOSE: 1177.50 mGy.cm FINDINGS: Brain parenchyma: The brain parenchyma is normal in appearance. There is no hemorrhage, mass effect, or evidence of acute territorial ischemia by CT criteria. There is no evidence of enhancing mass lesion on the angiogram phase images. The ventricles, sulci, and cisterns are normal in configuration. There is faint mineralization in the basal ganglia. Dean-white matter differentiation is preserved. No extra-axial fluid collection is seen. Thoracic aorta: Visualized portions of the thoracic aorta are normal in caliber. The aortic arch demonstrates standard 3-vessel anatomy. Right carotid arterial system: The right common carotid artery is widely patent, as are the right internal and external carotid arteries. There is minimal calcified plaque in the carotid bulb. Left carotid arterial system: The left common carotid artery is widely patent, as are the left internal and external carotid arteries. There is minimal calcified plaque in the carotid bulb. Vertebral arteries: The vertebral arteries are widely patent bilaterally and codominant. Subclavian arteries: Widely patent bilaterally. Intracranial vasculature: The internal carotid arteries are patent at the skull base, as are the anterior and middle cerebral arteries bilaterally. The vertebrobasilar system and posterior cerebral arteries are widely patent. The vertebral arteries are codominant. There is a right posterior communicating artery. There is no aneurysm, high-grade stenosis, or focal vessel cut off seen throughout the intracranial circulation. Jugular veins: Patent bilaterally. Dural sinuses: Patent. Lung apices: Partially visualized upper lobe lung parenchyma appears clear. Soft tissues: The visualized pharyngeal soft tissues are normal in appearance noting angiographic phase technique. The oropharyngeal airway appears widely patent. The salivary and thyroid glands are normal in appearance. No cervical lymphadenopathy is seen. Skeletal structures: The calvarium appears intact. The cervical spine is within normal limits. Orbits: The bony orbits are intact. Orbital contents are normal as visualized. Sinuses and mastoids: A tension cysts in the maxillary antra measure up to 2.1 cm. The paranasal sinuses are otherwise clear. The mastoid air cells are well pneumatized. IMPRESSION: 1. There is no hemorrhage, mass effect, or evidence of acute territorial ischemia by CT criteria. 2. Unremarkable CT angiogram of the brain. 3. Unremarkable CT angiogram of the neck. ACT 112: Negative or not required by law. Electronically signed by: Eduardo Gu M.D. 04/20/2023 6:53 PM Chest X-Ray 04/20/23 17:49 TWO VIEW CHEST CLINICAL HISTORY: Dizziness. Change in mental status.. FINDINGS: PA and lateral chest radiographs are compared to study dated 05/11/2022 and correlated with chest CT dated 11/10/2017. The cardiomediastinal silhouette is top normal for projection. There is mild bibasilar scarring/atelectasis. The lungs and pleural spaces are otherwise clear. There is no pneumothorax. The bony thorax appears intact. Cholecystectomy clips are seen in the right upper quadrant. IMPRESSION: No active disease in the chest. ACT 112: Negative or not required by law. Electronically signed by: Eduardo Gu M.D. 04/20/2023 6:56 PM PG Care Time/CCT Total # of Minutes Spent Total Time Spent with Patient: Total time spent is greater than 50% in coordination of care (as documented) at patient's floor/unit and/or counseling patient: Coding Level of Care Code 77703 INT INP/OBS CARE 2/55MIN Diagnoses Dizziness R42 Hypertension I10 GERD (gastroesophageal reflux disease) K21.9
[2023-04-20] MEDS ORDERED: CHOLESTYRAMINE LIGHT 4 GM PKT PO ONE (23:30)
[2023-04-20] MEDS ORDERED: MONTELUKAST SODIUM 10 MG TABLET PO PRN (23:55)
[2023-04-20] MEDS ORDERED: ACETAMINOPHEN 325 MG TAB PO PRN (23:55)
[2023-04-20] MEDS ORDERED: POTASSIUM CHLORIDE CRTAB 20 MEQ TABCR PO STA (23:55)
[2023-04-21 00:13] LABS: Phosphorus 3.7 mg/dl (2.5-4.9)
[2023-04-21 07:06] LABS: BUN Creatinine Ratio 17.5 (10-20); Calcium 8.8 mg/dl (8.6-10.3); Creatinine Clr Calc Pharmacy 104.7 ml/min; Est GFR (African American) 97.9 ml/min; Est GFR (Non-African American) 84.5 ml/min; Potassium 3.7 mmol/L (3.5-5.1)
[2023-04-21 07:12] LABS: Appearance Urine Cloudy (Clear); Bacteria Urine Automated Negative (Negative); Bilirubin Urine Negative (Negative); Blood Urine Negative (Negative); Color Urine Yellow; Glucose Urine UA Negative (Negative); Ketones Urine Negative (Negative); Leukocyte Esterase Urine Negative (Negative); Nitrite Urine Negative (Negative); Protein Urine Negative (Negative); RBC Urine Automated 0-4 /hpf (0-4); Specific Gravity Urine > 1.045 (1.000-1.030); Urobilinogen Urine Negative (Negative)
[2023-04-21 07:18] LABS: Thyroid Stimulating Hormone 6.151 uIu/ml (0.300-4.500)
[2023-04-21 07:30] LABS: Uric Acid Crystals Urine Present (None Prsent)
--- NOTE | 2023-04-21 07:38 | Hospitalist Progress Note ---
Date of Service April 21, 2023 Assessment & Plan (1) Dizziness: (2) GERD (gastroesophageal reflux disease): (3) Hypertension: Plan (1) Dizziness: Plan: 62yo male with history of HTN presenting with several days of episodic HUFF, dizziness, gait instability and visual disturbance. He is afebrile, HD stable on exam. No neurological findings on physical exam. CT as well as CTA Head and Neck are unremarkable. Ddx to include TIA, CVA, migraine -Observation to medical with telemetry -Neuro checks per protocol -Check HgbA1C -Lipid panel benign, vitamin B12 normal -TSH 6.1, follow-up as an outpatient. -Check MRI brain -Check 2D echo -Head CT negative, head CTA negative, neck CTA negative. -Brain MRI negative -Chest x-ray negative - -Initiate ASA 81mg po daily for now - if MRI is negative would DC -Tylenol PRN HUFF (2) Hypertension: Plan: Blood pressure well controlled at present -Continue HCTZ -Continue to monitor (3) GERD (gastroesophageal reflux disease): Plan: Chronic. Patient reports baseline abdominal discomfort secondary to GERD. Unchanged -Continue Pepcid F/E/N - Heplock. K repletion with 40mEq, repeat chemistry in AM, Heart healthy diet as tolerated Ppx - Low risk for DVT Code - Full per discussion with patient Dispo - Observation to medical Admission and Anticipated Discharge Date Admission Date: April 20, 2023 Results & Data Results & Data Vital Signs (Past 12 Hours) Vital Signs Temp Pulse Pulse Resp BP BP Pulse Ox 04/21/23 07:12 36.7 C 66 18 152/91 H 96 04/21/23 04:40 36.8 C 74 20 166/93 H 96 04/21/23 01:30 86 04/21/23 00:57 36.9 C 18 161/91 H 96 04/20/23 23:55 36.9 C 18 161/91 H 96 04/20/23 23:30 82 19 137/82 94 04/20/23 23:00 77 12 134/92 94 04/20/23 22:48 90 15 146/88 H 96 04/20/23 22:05 81 17 168/94 H 04/20/23 22:00 79 15 04/20/23 21:30 87 21 04/20/23 21:55 82 04/20/23 21:00 69 15 96 06/17/23 20:30 78 18 157/99 H 96 04/20/23 20:00 75 14 127/85 96 O2 Del Method 04/21/23 07:12 Room Air 04/21/23 04:40 Room Air 04/21/23 01:30 04/21/23 00:57 Room Air 04/20/23 23:55 Room Air 04/20/23 23:30 Room Air 04/20/23 23:00 Room Air 04/20/23 22:48 Room Air 04/20/23 22:05 04/20/23 22:00 04/20/23 21:30 04/20/23 21:55 04/20/23 21:00 Room Air 04/20/23 20:30 Room Air 04/20/23 20:00 Room Air
[2023-04-21 07:53] LABS: T4 Free Thyroxine 0.97 ng/dl (0.61-1.60)
[2023-04-21 08:15] LABS: Estimated Average Glucose 111 mg/dl; Hemoglobin A1C 5.5 % (4.5-5.6)
[2023-04-21] MEDS ORDERED: ASPIRIN 81 MG ECTAB PO SCH (09:00)
[2023-04-21] MEDS ORDERED: FEXOFENADINE HCL 180 MG TAB PO SCH (09:00)
[2023-04-21] MEDS ORDERED: FAMOTIDINE 20 MG TAB PO SCH ×2 (09:00→21:00)
[2023-04-21] MEDS ORDERED: hydroCHLOROthiazide 25 MG TAB PO SCH (09:00)
[2023-04-21] MEDS ORDERED: GADOBUTROL 10ML VIAL IV ONE (09:42)
[2023-04-21] MEDS ORDERED: CHOLESTYRAMINE LIGHT 4 GM PKT PO SCH (10:00)
--- NOTE | 2023-04-21 10:12 | Magnetic Resonance Report ---
MRI OF THE BRAIN COMBO CLINICAL HISTORY: Dizziness. Headache. Stroke like symptoms. COMPARISON STUDY: CT of the brain dated 04/20/2023. TECHNIQUE: MRI of the brain was performed utilizing various T1 and T2-weighted sequences in the axial , sagittal, and coronal planes. Contrast-enhanced sequences were acquired following the administratio n of 10 cc of Gadavist. FINDINGS: Brain parenchyma: There is minimal microangiopathic change. The brain parenchyma is otherwise normal in appearance. There is no hemorrhage or mass effect. There is no restricted diffusion to suggest acu te ischemia. No enhancing mass lesion is identified on the postcontrast images. Dean-white matter dif ferentiation is preserved. There is mineralization in the basal ganglia. No extra-axial fluid collect ion is seen. The cerebellar tonsils are normal in configuration. Ventricles, sulci, and cisterns: Normal in configuration. Pituitary and sella: Partially empty sella is incidentally noted. Intracranial vasculature: Normal flow voids are maintained at the skull base. Orbits: The bony orbits are grossly intact. Orbital contents are normal in appearance. Sinuses and mastoids: Retention cysts within the maxillary antra measuring up to 2.6 cm. There is mil d mucosal thickening within the frontal and ethmoid sinuses. There is a right mastoid effusion. The l eft mastoid air cells are clear. Calvarium: Unremarkable. Cervical cord: Partially visualized cervical spinal cord is normal in morphology and signal intensity . IMPRESSION: No acute intracranial abnormality. ACT 112: Negative or not required by law. Electronically signed by: Eduardo Gu M.D. 04/21/2023 10:10 AM
--- NOTE | 2023-04-21 10:59 | Discharge Summary ---
Date of Service April 21, 2023 Admission HPI Per Admitting Provider Eddie Neri is a 62yo male with history of HTN and GERD presenting with episodic dizziness and blurry vision. Patient's symptoms began on 04/15/23 with intermittent HUFF which he describes as pressure, located predominantly posterior head and behind his eyes. He has taken Tylenol with some relief. His HUFF worsened over the and and he began having episodes of dizziness/lightheadedness and gait instability as well as blurry "Hazy" vision. Today he felt numbness and tingling in both arms which lasted several hours and has since resolved. He has been having more frequent palpitations this week as well. Otherwise, he denies visual loss or amarosis fugax, denies chest pain, cough, SOB, vomiting or diarrhea. He has chronic abdominal discomfort secondary to GERD which he reports as unchanged. No facial droop, slurred speech or confusion. No fever, chills or urinary complaints. No complaints at present. With mild dull headache. In the ER he is afebrile, mildly hypertensive, otherwise HD stable. Admission Exam Per Admitting Provider General: patient resting comfortably, NAD, non-toxic in appearance, AA&O x 4 Skin: warm, dry, intact, no rashes or lesions HEENT: NC/AT, PERRL, EOMI, anicteric sclera, conjunctiva without injection, external ear normal to inspection and nontender, nares patent, moist mucus membranes, dentition intact, no oropharyngeal lesions, neck supple, trachea midline, no LAD, no thyromegaly, no JVD Heart: +S1/S2, regular, no m/r/g, no bruits Lungs: equal air entry bilaterally, no rales/rhonchi/wheezes Abd: +BS, soft, NT/ND, no masses/organomegaly/ascites Ext: warm, 2+ pulses in UE/LE bilaterally, no clubbing/cyanosis or edema Neuro:AA&O x 4, speech clear and appropriate, no facial droop, CN II-XII intact with exception of mildly diminished hearing in left ear which is baseline, sensation to light touch equal in bilateral UE/LE, MS 5/5 in UE/LE bilaterally, intact daokpc-tv-thrm and ozlr-bm-phnf testing, no pronator drift, gait not assessed Principal Diagnosis Dizziness Discharge Exam Constitutional: well-appearing, no acute distress HEENT: NCAT, no conjunctival injection CV: regular rhythm, no murmur appreciated, extremities well-perfused, no LE edema Resp: CTABL, no wheezes/rales/rhonchi appreciated, no increased work of breathing GI: soft, nondistended, nontender, BS normoactive MSK: no gross deformities appreciated Skin: warm, dry, no rash appreciated Neuro: alert, oriented, no focal neurologic deficit appreciated Discharge Data Allergies Allergy/AdvReac Type Severity Reaction Status Date / Time grass pollen-perennial rye, Allergy Intermediate TREES,GRASS Verified 04/20/23 19:16 standar MOLDS-ITCHY EYES,STUFFY NOSE Consultations Head CT 04/20/23 17:[address] OF THE BRAIN; CT ANGIOGRAM OF THE BRAIN; CT ANGIOGRAM OF THE NECK CLINICAL HISTORY: Dizziness. Gait instability. Change in mental status. COMPARISON STUDY: CT of the brain dated 04/04/2009. TECHNIQUE: Unenhanced axial CT scan of the brain is performed. Subsequently, following the IV administration of 120 of Optiray 320, CT angiogram of the head and neck was performed from the aortic arch to the vertex. Images are reviewed in the axial, sagittal, and coronal planes. 3-D MIPS images are created and assessed. IV contrast was administered without complication. All measurements were calculated based on NASCET criteria. A dose lowering technique was utilized adhering to the principles of ALARA. CT DOSE: 1177.50 mGy.cm FINDINGS: Brain parenchyma: The brain parenchyma is normal in appearance. There is no hemorrhage, mass effect, or evidence of acute territorial ischemia by CT criteria. There is no evidence of enhancing mass lesion on the angiogram phase images. The ventricles, sulci, and cisterns are normal in configuration. There is faint mineralization in the basal ganglia. Dean-white matter differentiation is preserved. No extra-axial fluid collection is seen. Thoracic aorta: Visualized portions of the thoracic aorta are normal in caliber. The aortic arch demonstrates standard 3-vessel anatomy. Right carotid arterial system: The right common carotid artery is widely patent, as are the right internal and external carotid arteries. There is minimal calcified plaque in the carotid bulb. Left carotid arterial system: The left common carotid artery is widely patent, as are the left internal and external carotid arteries. There is minimal calcified plaque in the carotid bulb. Vertebral arteries: The vertebral arteries are widely patent bilaterally and codominant. Subclavian arteries: Widely patent bilaterally. Intracranial vasculature: The internal carotid arteries are patent at the skull base, as are the anterior and middle cerebral arteries bilaterally. The vertebrobasilar system and posterior cerebral arteries are widely patent. The vertebral arteries are codominant. There is a right posterior communicating artery. There is no aneurysm, high-grade stenosis, or focal vessel cut off seen throughout the intracranial circulation. Jugular veins: Patent bilaterally. Dural sinuses: Patent. Lung apices: Partially visualized upper lobe lung parenchyma appears clear. Soft tissues: The visualized pharyngeal soft tissues are normal in appearance noting angiographic phase technique. The oropharyngeal airway appears widely patent. The salivary and thyroid glands are normal in appearance. No cervical lymphadenopathy is seen. Skeletal structures: The calvarium appears intact. The cervical spine is within normal limits. Orbits: The bony orbits are intact. Orbital contents are normal as visualized. Sinuses and mastoids: A tension cysts in the maxillary antra measure up to 2.1 cm. The paranasal sinuses are otherwise clear. The mastoid air cells are well pneumatized. IMPRESSION: 1. There is no hemorrhage, mass effect, or evidence of acute territorial ischemia by CT criteria. 2. Unremarkable CT angiogram of the brain. 3. Unremarkable CT angiogram of the neck. ACT 112: Negative or not required by law. Electronically signed by: Eduardo Gu M.D. 04/20/2023 6:53 PM Head CTA 04/20/23 17:[address] OF THE BRAIN; CT ANGIOGRAM OF THE BRAIN; CT ANGIOGRAM OF THE NECK CLINICAL HISTORY: Dizziness. Gait instability. Change in mental status. COMPARISON STUDY: CT of the brain dated 04/04/2009. TECHNIQUE: Unenhanced axial CT scan of the brain is performed. Subsequently, following the IV administration of 120 of Optiray 320, CT angiogram of the head and neck was performed from the aortic arch to the vertex. Images are reviewed in the axial, sagittal, and coronal planes. 3-D MIPS images are created and assessed. IV contrast was administered without complication. All measurements were calculated based on NASCET criteria. A dose lowering technique was utilized adhering to the principles of ALARA. CT DOSE: 1177.50 mGy.cm FINDINGS: Brain parenchyma: The brain parenchyma is normal in appearance. There is no hemorrhage, mass effect, or evidence of acute territorial ischemia by CT criteria. There is no evidence of enhancing mass lesion on the angiogram phase images. The ventricles, sulci, and cisterns are normal in configuration. There is faint mineralization in the basal ganglia. Dean-white matter differentiation is preserved. No extra-axial fluid collection is seen. Thoracic aorta: Visualized portions of the thoracic aorta are normal in caliber. The aortic arch demonstrates standard 3-vessel anatomy. Right carotid arterial system: The right common carotid artery is widely patent, as are the right internal and external carotid arteries. There is minimal calcified plaque in the carotid bulb. Left carotid arterial system: The left common carotid artery is widely patent, as are the left internal and external carotid arteries. There is minimal calci fied plaque in the carotid bulb. Vertebral arteries: The vertebral arteries are widely patent bilaterally and codominant. Subclavian arteries: Widely patent bilaterally. Intracranial vasculature: The internal carotid arteries are patent at the skull base, as are the anterior and middle cerebral arteries bilaterally. The vertebrobasilar system and posterior cerebral arteries are widely patent. The vertebral arteries are codominant. There is a right posterior communicating artery. There is no aneurysm, high-grade stenosis, or focal vessel cut off seen throughout the intracranial circulation. Jugular veins: Patent bilaterally. Dural sinuses: Patent. Lung apices: Partially visualized upper lobe lung parenchyma appears clear. Soft tissues: The visualized pharyngeal soft tissues are normal in appearance noting angiographic phase technique. The oropharyngeal airway appears widely patent. The salivary and thyroid glands are normal in appearance. No cervical lymphadenopathy is seen. Skeletal structures: The calvarium appears intact. The cervical spine is within normal limits. Orbits: The bony orbits are intact. Orbital contents are normal as visualized. Sinuses and mastoids: A tension cysts in the maxillary antra measure up to 2.1 cm. The paranasal sinuses are otherwise clear. The mastoid air cells are well pneumatized. IMPRESSION: 1. There is no hemorrhage, mass effect, or evidence of acute territorial ischemia by CT criteria. 2. Unremarkable CT angiogram of the brain. 3. Unremarkable CT angiogram of the neck. ACT 112: Negative or not required by law. Electronically signed by: Eduardo Gu M.D. 04/20/2023 6:53 PM Neck CTA 04/20/23 17:[address] OF THE BRAIN; CT ANGIOGRAM OF THE BRAIN; CT ANGIOGRAM OF THE NECK CLINICAL HISTORY: Dizziness. Gait instability. Change in mental status. COMPARISON STUDY: CT of the brain dated 04/04/2009. TECHNIQUE: Unenhanced axial CT scan of the brain is performed. Subsequently, following the IV administration of 120 of Optiray 320, CT angiogram of the head and neck was performed from the aortic arch to the vertex. Images are reviewed in the axial, sagittal, and coronal planes. 3-D MIPS images are created and assessed. IV contrast was administered without complication. All measurements were calculated based on NASCET criteria. A dose lowering technique was utilized adhering to the principles of ALARA. CT DOSE: 1177.50 mGy.cm FINDINGS: Brain parenchyma: The brain parenchyma is normal in appearance. There is no hemorrhage, mass effect, or evidence of acute territorial ischemia by CT criteria. There is no evidence of enhancing mass lesion on the angiogram phase images. The ventricles, sulci, and cisterns are normal in configuration. There is faint mineralization in the basal ganglia. Dean-white matter differentiation is preserved. No extra-axial fluid collection is seen. Thoracic aorta: Visualized portions of the thoracic aorta are normal in caliber. The aortic arch demonstrates standard 3-vessel anatomy. Right carotid arterial system: The right common carotid artery is widely patent, as are the right internal and external carotid arteries. There is minimal calcified plaque in the carotid bulb. Left carotid arterial system: The left common carotid artery is widely patent, as are the left internal and external carotid arteries. There is minimal calcified plaque in the carotid bulb. Vertebral arteries: The vertebral arteries are widely patent bilaterally and codominant. Subclavian arteries: Widely patent bilaterally. Intracranial vasculature: The internal carotid arteries are patent at the skull base, as are the anterior and middle cerebral arteries bilaterally. The vertebrobasilar system and posterior cerebral arteries are widely patent. The vertebral arteries are codominant. There is a right posterior communicating artery. There is no aneurysm, high-grade stenosis, or focal vessel cut off seen throughout the intracranial circulation. Jugular veins: Patent bilaterally. Dural sinuses: Patent. Lung apices: Partially visualized upper lobe lung parenchyma appears clear. Soft tissues: The visualized pharyngeal soft tissues are normal in appearance noting angiographic phase technique. The oropharyngeal airway appears widely patent. The salivary and thyroid glands are normal in appearance. No cervical lymphadenopathy is seen. Skeletal structures: The calvarium appears intact. The cervical spine is within normal limits. Orbits: The bony orbits are intact. Orbital contents are normal as visualized. Sinuses and mastoids: A tension cysts in the maxillary antra measure up to 2.1 cm. The paranasal sinuses are otherwise clear. The mastoid air cells are well pneumatized. IMPRESSION: 1. There is no hemorrhage, mass effect, or evidence of acute territorial ischemia by CT criteria. 2. Unremarkable CT angiogram of the brain. 3. Unremarkable CT angiogram of the neck. ACT 112: Negative or not required by law. Electronically signed by: Eduardo Gu M.D. 04/20/2023 6:53 PM Chest X-Ray 04/20/23 17:49 TWO VIEW CHEST CLINICAL HISTORY: Dizziness. Change in mental status.. FINDINGS: PA and lateral chest radiographs are compared to study dated 05/11/2022 and correlated with chest CT dated 11/10/2017. The cardiomediastinal silhouette is top normal for projection. There is mild bibasilar scarring/atelectasis. The lungs and pleural spaces are otherwise clear. There is no pneumothorax. The bony thorax appears intact. Cholecystectomy clips are seen in the right upper quadrant. IMPRESSION: No active disease in the chest. ACT 112: Negative or not required by law. Electronically signed by: Eduardo Gu M.D. 04/20/2023 6:56 PM Brain MRI 04/21/23 08:50 MRI OF THE BRAIN COMBO CLINICAL HISTORY: Dizziness. Headache. Stroke like symptoms. COMPARISON STUDY: CT of the brain dated 04/20/2023. TECHNIQUE: MRI of the brain was performed utilizing various T1 and T2-weighted sequences in the axial, sagittal, and coronal planes. Contrast-enhanced sequences were acquired following the administration of 10 cc of Gadavist. FINDINGS: Brain parenchyma: There is minimal microangiopathic change. The brain parenchyma is otherwise normal in appearance. There is no hemorrhage or mass effect. There is no restricted diffusion to suggest acute ischemia. No enhancing mass lesion is identified on the postcontrast images. Dean-white matter differentiation is preserved. There is mineralization in the basal ganglia. No extra-axial fluid collection is seen. The cerebellar tonsils are normal in configuration. Ventricles, sulci, and cisterns: Normal in configuration. Pituitary and sella: Partially empty sella is incidentally noted. Intracranial vasculature: Normal flow voids are maintained at the skull base. Orbits: The bony orbits are grossly intact. Orbital contents are normal in appearance. Sinuses and mastoids: Retention cysts within the maxillary antra measuring up to 2.6 cm. There is mild mucosal thickening within the frontal and ethmoid sinuses. There is a right mastoid effusion. The left mastoid air cells are clear. Calvarium: Unremarkable. Cervical cord: Partially visualized cervical spinal cord is normal in morphology and signal intensity. IMPRESSION: No acute intracranial abnormality. ACT 112: Negative or not required by law. Electronically signed by: Eduardo Gu M.D. 04/21/2023 10:10 AM Abnormal lab results 04/20/23 04/21/23 04/21/23 Range/Units 17:38 06:10 06:10 Potassium 3.4 L (3.5-5.1) mmol/L Chloride 109 H (98-107) mmol/L Total Bilirubin 1.5 H (0.2-1.0) mg/dl TSH 6.151 H (0.300-4.500) uIu/ml Urine Appearance (Clear) Ur Specific [place] (1.000-1.030) U Epithel Cells (Auto) (0-5) /lpf Uric Acid Crystals (None Prsent) 04/21/23 Range/Units 06:55 Potassium (3.5-5.1) mmol/L Chloride (98-107) mmol/L Total Bilirubin (0.2-1.0) mg/dl TSH (0.300-4.500) uIu/ml Urine Appearance Cloudy A (Clear) Ur Specific [place] > 1.045 H (1.000-1.030) U Epithel Cells (Auto) 5-10 H (0-5) /lpf Uric Acid Crystals Present A (None Prsent) 04/20/23 22:02 ED Decision to Admit Stat Ordered Studies 04/20/23 17:47 CT head/brain wo con Stat CTA head w con [CT angio head w con] Stat CTA neck with con [CT angio neck with con] Stat 04/21/23 08:50 MR brain wo/w con Routine Hospital Course (1) Dizziness: (2) GERD (gastroesophageal reflux disease): (3) Hypertension: Plan 62yo male with history of HTN presenting with several days of episodic HUFF, dizziness, gait instability and visual disturbance. He is afebrile, HD stable on exam. No neurological findings on physical exam. CT as well as CTA Head and Neck are unremarkable. Ddx to include TIA, CVA, migraine Dizziness -Lipid panel benign, vitamin B12 normal -TSH 6.1, follow-up as an outpatient. -Echo was benign with an EF of 60-65%. -Head CT negative, head CTA negative, neck CTA negative, Brain MRI negative -Chest x-ray negative -Patient states that he does not drink much water or stay hydrated. Recommend patient stay hydrated. -Continue ASA as an outpatient. -Should follow-up with PCP in 1 week. Hypertension -Continue home medication GERD (gastroesophageal reflux disease) -We will increase Pepcid to twice daily. Total Time Total Time Spent Total Time Spent (In Minutes): Please refer to attendings attestation. Discharge Plan Discharge Items Patient Disposition: Home - Self-Care Reason For Visit: TRANSIENT CONFUSION, BLURRY VISION Discharge Diagnosis: Dizziness Activity: Resume your previous activity Non-emergency contact: Primary Care Provider Call non-emergency contact if: you have any medication questions, your pain is concerning for you and your temperature is above 101.5 Follow-up/Referrals: Zach Nettles MD [Primary Care Provider] - (please call to schedule follow up appointment within one week of discharge - your next scheduled appointment is 07/29/2023) Patricio Gambino MD [Physician] - 10/21/23 Diet: Regular Addtl Attending Provider Instructions: You were admitted to the hospital for dizziness. You were treated with fluids and all tests were negative. A discharge summary will be sent to your primary care physician to ensure continuity of care. Please bring this discharge summary with you to your next office appointment so that your provider can review it at that time. Follow-up appointments: * Make a follow-up appointment with your PCP within the next week. It is very important that you follow up with them shortly after discharge from the hospital. * Keep all your follow-up appointments as already scheduled. If you cannot make an appointment, notify your provider. Medications: Your medication list has been reviewed and reconciled upon discharge to ensure accuracy and continuity of care. An updated list of all your medications is included with your hospital discharge paperwork. Please review this list closely, and make note of any changes. * We changed the dosing of your home famotidine. Take famotidine 20mg twice a day. * If you have any issues filling these prescriptions, please call [phone] and ask to leave a message for Dr. Downing. * Take your medications as instructed; do not skip a dose of your medicines. Make sure all of your doctors know every medicine you are taking (including ilci-uta-vfwzygh medicines, vitamins, and supplements). Call your primary care provider before taking any new medicines (including over- the-counter medicines, vitamins, and supplements), because some of these may interact with your current medications, or may make your symptoms worse. Tell your primary care provider if you cannot afford your medications. CONTACT YOUR PRIMARY CARE PROVIDER if you experience any of the following: * Worsening of symptoms * Fever, chills, or fatigue * Difficulty following your treatment plan, or difficulty taking medications CALL 911 OR GO TO THE EMERGENCY DEPARTMENT if you experience any of the following: * Sudden, severe abdominal pain or nausea/vomiting * Severe chest pain, or chest pain that radiates (moves) to your jaw or arm * Sudden, severe shortness of breath or difficulty breathing Thank you for allowing us to participate in your care. Pending Studies at Discharge: No Stand-Alone Forms: My [facility] [employer], Smoking Cessation Medications and DC Order Prescriptions: Continued montelukast [Singulair] 10 mg tablet 10 mg PO QPM PRN (Reason: allergies) Qty: 30 2RF amlodipine 5 mg tablet 5 mg PO QAM Qty: 90 3RF hydrochlorothiazide 25 mg tablet 25 mg PO QAM Qty: 90 3RF cholestyramine (with sugar) 4 gram powder 1 ea PO DAILY Qty: 348.6 5RF Rx Instructions: 1 scoop daily fexofenadine [Little Allergy] 180 mg Tablet 180 mg PO QAM Changed famotidine [Pepcid AC] 20 mg Tablet 20 mg PO BID 30 Days Qty: 60 0RF Discharge Orders: Discharge Order (Routine); Ordered 04/21/23 Ordered By: Eduardo Downing Admission Data Admit Date/Time: 04/20/23 22:41 Attending Provider: Daniele Haider Admit Provider: Chantal Berger Primary Care Provider: Zach Nettles Other Providers: Chantal Berger Other Interventions: Discharge Summary Assessment (RN) Last Done: 04/21/23 13:50 Supervising Physician Co-Signing Physician Notes Attending attestation Pt seen and examined in concert with Dr. Downing. In agreement with the documented findings as noted in the resident documentation with any exceptions or additions as noted here. Resolution of dizziness without recurrence. Patient reports ~24 oz of water intake per day on a good day with mowing 3 lawns on a push/riding mower day of onset. h/o positional orthostasis on tamsulosin, this is dissimilar to those instances. Symptoms feel like imbalance worse with head movement and similar. On examination, S1/S2 nl RRR no MCG. CTAB. Abd NT/ND BS+ve, CNII-XII grossly intact MRI brain CT head, CT neck Echo Troponin HS Dizziness - less likely of acute neurologic or cardiac origin - d/c ASA on discharge. Follow up with PCP and consider event monitor with recurrence (h/o same previously WNL). Strongly counseled for hydration aurora w/ activity Elevated TSH - would warrant repeat evaluation on outpatient follow up for verification and management Nocturia with concern for BPH - strongly encourage to address with PCP, would likely experience less orthostasis at work if he drank more water. GERD - recommended trial of BID famotidine to improve symptoms and current dietary self-restriction. Would consider revisit PPI alternative in the future. Else see resident documentation as noted. Total attending physician time spent with this patient's care on the day of discharge: 45 minutes. Resident Activity Tracking Resident Involvement: Resident Care Provided Care Provided: Adult Hospital Medicine
[2023-04-21] MEDS ORDERED: amLODIPine BESYLATE 5 MG TAB PO SCH (11:15)
--- NOTE | 2023-04-21 13:35 | XCELERA ---
[id number] [id number]
--- NOTE | 2023-04-21 13:46 | Electrocardiogram Report ---
Test Reason : Blood Pressure : / mmHG Vent. Rate : 087 BPM Atrial Rate : 087 BPM P-R Int : 162 ms QRS Dur : 086 ms QT Int : 366 ms P-R-T Axes : 026 008 021 degrees QTc Int : 440 ms Normal sinus rhythm Nonspecific ST abnormality Abnormal ECG When compared with ECG of 11-MAY-2022 21:38, No significant change was found Confirmed by Zach Davila ([id number]) on 04/21/2023 1:46:00 PM Referred By: REFERRED SELF Confirmed By:Zach Davila
== END 2023-04-21 14:22 | disposition home or self-care (01) ==
LOC: 2W 17:19 → ED 17:19 → SUATTDRO 22:41 → 2W 23:36